=== PATIENT | female | born 1950 | race Caucasian/White ===

== ENCOUNTER → 2016-04-11 | Day surgery (SDC) | payer MEDICARE ==
[~2016-04-11] MED LIST: ALPRAZolam 0.25 MG TAB ONE; BACITRACIN OINT 1 EACH PACKET TOPICAL ONE; LIDOCAINE 1% INJ 10MG/ML (20 ML MDV) ONE; SODIUM BICARB 4% 5 ML VIAL (0.48 MEQ/ML) ONE
--- NOTE | 2016-04-11 09:35 | USB ---
EXAMINATION TYPE: US biopsy breast VAD RT, MG diagnostic mammo RT wo CAD, US breast aspiration single RT DATE OF EXAM: 04/11/2016 8:33 AM CLINICAL HISTORY: US. TECHNIQUE: Ultrasound guided core biopsy and aspiration of right breast. COMPARISON: NONE FINDINGS: The procedure of ultrasound guided core biopsy was explained to the patient. Benefits, alternatives, and risks were discussed. An informed consent was then obtained. The patient was placed in supine positioning for imaging and for the procedure. The overlying skin was prepped and draped in usual sterile fashion. Lidocaine buffered with bicarbonate was used as anesthetic into the skin and subcutaneous tissue up to area of concern in the right breast. A tre was made with surgical scalpel. Under ultrasound guidance, a 12-gauge vacuum assisted biopsy gun device was used to obtain 3 core samples. Aspiration was also performed and approximately 25 cc of bloody aspirate was obtained. Following this, a biopsy clip was left in lesion. Mammographic correlation was performed. The patient tolerated the procedure well without any immediate complication. The patient was kept in the radiology department for short stay after the procedure and then discharged home in stable condition. IMPRESSION: Successful, uncomplicated ultrasound guided core biopsy and aspiration of area of concern in the right breast, full pathology results to follow. Pathology Results: Benign BREAST, RIGHT, CORE BIOPSY: DENSE FIBROSIS/SCAR WITH CALCIFICATIONS. NEGATIVE FOR MALIGNANCY. BREAST, RIGHT, ASPIRATE: VIRTUALLY ACELLULAR SPECIMEN CONSISTING OF BLOOD WITH SCATTERED INFLAMMATORY CELLS. NON-DIAGNOSTIC. Recommendation Follow up ultrasound of the right breast in 6 months. FAVIOD
== END ==
LOC: RADUSWWP 06:59
PROVIDERS: ATTEND Surgery
DX: R92.8 Other abnormal and inconclusive findings on diagnostic imaging of breast (principal); N60.31 Fibrosclerosis of right breast; L90.5 Scar conditions and fibrosis of skin; N64.89 Other specified disorders of breast
CPT/HCPCS: 88305; 88173; 19083; G0206; A4648; J2001; 76942

== ENCOUNTER → 2016-11-21 | Outpatient (CLI) | payer MEDICARE ==
--- NOTE | 2016-11-21 08:07 | USB ---
Reason for exam: follow-up at short interval from prior study. History: Patient has history of breast cancer at age 40. Benign US breast aspiration single RT of the right breast, April 11, 2016. Benign US biopsy breast VAD RT of the right breast, April 11, 2016. Lumpectomy of the right breast, 1990. Radiation therapy of the right breast, 1990. Physical Findings: Nurse did not find any significant physical abnormalities on exam. US Breast RT Right breast ultrasound includes all four quadrants, the retroareolar region and axilla. Finding demonstrates a 1.3 x 1.6 x 1.0cm scar at 1 o'clock. Area is consistent with post surgical scar leading toward the skin and recently biopsied. These results were verbally communicated with the patient and result sheet given to the patient on 11/21/16. ASSESSMENT: Benign, BI-RAD 2 RECOMMENDATION: Routine screening mammogram of both breasts in 1 year.
== END | disposition home or self-care (01) ==
LOC: RADUSWWP 06:57
PROVIDERS: ATTEND Surgery
DX: R92.8 Other abnormal and inconclusive findings on diagnostic imaging of breast (principal)

== ENCOUNTER → 2017-04-01 | Outpatient (CLI) | payer MEDICARE ==
--- NOTE | 2017-04-01 09:24 | BD ---
EXAMINATION TYPE: MG DEXA axial skeleton. DATE OF EXAM: 04/01/2017 COMPARISON: NONE CLINICAL HISTORY: Height: 63.7 IN Weight: 156 LBS FRAX RISK QUESTIONS: Alcohol (3 or more units per day): NO Family History (Parent hip fracture): YES MOTHER Glucocorticoids (More than 3mos): NO (Ex: prednisone, prednisolone, methylprednisolone, dexamethasone, and hydrocortisone). History of Fracture in Adulthood: NO Secondary Osteoporosis: 1. Type 1 Diabetes: NO 2. Hyperthyroidism: NO 3. Menopause before 45: YES AGE 41 4. Malnutrition: NO 5. Chronic liver disease: NO Rheumatoid Arthritis: NO Current Tobacco Use: NO RISK FACTORS HISTORY OF: Active: YES Diet low in dairy products/other sources of calcium: YES Postmenopausal woman: AGE 41 Take estrogen and/or progesterone medications: NOT NOW How long: TOOK FOR 6 MONTHS PREMARIN Lost more than 2 inches in height since high school: YES 2 03/31" MEDICATIONS: Thyroid Medications: YES Which medication: Levothyroxine How Lon YEARS Additional Medications: VIT D, LEVOTHYROXINE, BLOOD PRESSURE MEDS, METFORMIN, WATER PILL, Additional History: BREAST CANCER WITH RADIATION EXAM MEASUREMENTS: Bone mineral densitometry was performed using the [employer] System. Bone mineral density as measured about the Lumbar spine is: ----- L1-L4(G/cm2): 1.111 T Score Values are as follows: ----- L2: -1.1 ----- L3: -0.4 ----- L4: 1.1 ----- L1-L4: -0.6 Bone mineral density BASELINE Bone mineral density about the R hip (g/cm2): 0.803 Bone mineral density about the L hip (g/cm2): 0.860 T Score values are as follows: -----R Neck: -1.7 -----L Neck: -1.3 -----R Total: -1.2 -----L Total: -1.0 Bone mineral density BASELINE IMPRESSION: Osteopenia (T Score between -2.5 and -1 as noted by T score values in both hips. There is slightly increased risk of fracture and the patient may be considered for treatment. Re-Screen 2-5 years. NOTE: T-SCORE=SD OF THE YOUNG ADULT MEAN.
== END | disposition home or self-care (01) ==
LOC: RADBDWWP 08:25
PROVIDERS: ATTEND Family Medicine
DX: Z78.0 Asymptomatic menopausal state (principal)
CPT/HCPCS: 77080

== ENCOUNTER → 2018-03-29 | Outpatient (CLI) | payer MEDICARE ==
--- NOTE | 2018-03-31 11:58 | MM ---
Reason for exam: screening (asymptomatic). Last mammogram was performed 1 year ago. History: Patient is postmenopausal and has history of breast cancer at age 40. Benign US breast aspiration single RT of the right breast, April 11, 2016. Benign US biopsy breast VAD RT of the right breast, April 11, 2016. Lumpectomy of the right breast, 1990. Radiation therapy of the right breast, 1990. Physical Findings: A clinical breast exam by your physician is recommended on an annual basis and results should be correlated with mammographic findings. MG 3D Screening Mammo W/Cad Bilateral CC and MLO view(s) were taken. Prior study comparison: March 24, 2017, bilateral MG 3d screening mammo w/cad. April 11, 2016, right breast MG diagnostic mammo RT wo CAD. There are scattered fibroglandular densities. There are benign appearing oval circumscribed stable anterior depth left lower inner quadrant mass back to 2015. No suspicious abnormality. Right post therapy change. No significant changes when compared with prior studies. ASSESSMENT: Benign, BI-RAD 2 RECOMMENDATION: Routine screening mammogram of both breasts in 1 year.
== END | disposition home or self-care (01) ==
LOC: RADMAMWWP 07:11
PROVIDERS: ATTEND Family Medicine
DX: Z12.31 Encounter for screening mammogram for malignant neoplasm of breast (principal)
CPT/HCPCS: 77063; 77067

== ENCOUNTER → 2019-04-18 | Outpatient (CLI) | payer MEDICARE ==
--- NOTE | 2019-04-18 10:46 | BD ---
EXAMINATION TYPE: Axial Bone Density DATE OF EXAM: 04/18/2019 COMPARISON: NONE CLINICAL HISTORY: Height: 65 Weight: 155.3 FRAX RISK QUESTIONS: Alcohol (3 or more units per day): no Family History (Parent hip fracture): yes Glucocorticoids (More than 3mos): no (Ex: prednisone, prednisolone, methylprednisolone, dexamethasone, and hydrocortisone). History of Fracture in Adulthood: no Secondary Osteoporosis: 1. Type 1 Diabetes: no 2. Hyperthyroidism: no 3. Menopause before 45: yes 4. Malnutrition: no 5. Chronic liver disease: no Rheumatoid Arthritis: no Current Tobacco Use: no RISK FACTORS HISTORY OF: Family History of Osteoporosis: no Active: yes Diet low in dairy products/other sources of calcium: yes Postmenopausal woman: yes Lost more than 2 inches in height since high school: yes MEDICATIONS: blood pressure, lantis, water pill, metformin Thyroid Medications: levothyroxine How Lon years Additional History: EXAM MEASUREMENTS: Bone mineral densitometry was performed using the [employer] System. Bone mineral density as measured about the Lumbar spine is: ----- L1-L4(G/cm2): 1.101 T Score Values are as follows: ----- L2: -1.7 ----- L3: -0.7 ----- L4: 0.9 ----- L1-L4: -0.7 Bone mineral density has: decreased -3.9 % since study of: 04.01.2017 Bone mineral density about the R hip (g/cm2): 0.788 Bone mineral density about the L hip (g/cm2): 0.858 T Score values are as follows: -----R Neck: -1.8 -----L Neck: -1.3 -----R Total: -1.3 -----L Total: -0.9 Bone mineral density has: decreased -0.2 % since study of: 04.01.2017 IMPRESSION: Osteopenia about the right femur. NOTE: T-SCORE=SD OF THE YOUNG ADULT MEAN.
--- NOTE | 2019-04-19 08:52 | MM ---
Reason for exam: screening (asymptomatic). Last mammogram was performed 1 year and 1 month ago. History: Patient is postmenopausal and has history of breast cancer at age 40. Benign US breast aspiration single RT of the right breast, April 11, 2016. Benign US biopsy breast VAD RT of the right breast, April 11, 2016. Lumpectomy of the right breast, 1990. Radiation therapy of the right breast, 1990. Physical Findings: A clinical breast exam by your physician is recommended on an annual basis and results should be correlated with mammographic findings. MG 3D Screening Mammo W/Cad Bilateral CC and MLO view(s) were taken. XCCM view(s) were taken of the right breast. Prior study comparison: March 29, 2018, bilateral MG 3d screening mammo w/cad. March 24, 2017, bilateral MG 3d screening mammo w/cad. There are scattered fibroglandular densities. Finding: There is decreased in size and architectural distortion in the right breast consistent with known lumpectomy changes. There is a chronic nodularity in the left breast anterior position. There is no new dominant lesion. ASSESSMENT: Benign, BI-RAD 2 RECOMMENDATION: Routine screening mammogram of both breasts in 1 year.
== END | disposition home or self-care (01) ==
LOC: RADMAMWWP 07:32
PROVIDERS: ATTEND Family Medicine
DX: Z12.31 Encounter for screening mammogram for malignant neoplasm of breast (principal); M85.88 Other specified disorders of bone density and structure, other site; Z78.0 Asymptomatic menopausal state
CPT/HCPCS: 77063; 77067; 77080

== ENCOUNTER → 2020-05-09 | Outpatient (CLI) | payer MEDICARE ==
--- NOTE | 2020-05-11 11:06 | MM ---
Reason for exam: screening (asymptomatic). Last mammogram was performed 1 year and 1 month ago. History: Patient is postmenopausal and has history of breast cancer at age 40. Benign US breast aspiration single RT of the right breast, April 11, 2016. Benign US biopsy breast VAD RT of the right breast, April 11, 2016. Lumpectomy of the right breast, 1990. Radiation therapy of the right breast, 1990. Physical Findings: A clinical breast exam by your physician is recommended on an annual basis and results should be correlated with mammographic findings. MG 3D Screening Mammo W/Cad Bilateral CC and MLO view(s) were taken. XCCL view(s) were taken of the right breast. Prior study comparison: April 18, 2019, bilateral MG 3d screening mammo w/cad. March 29, 2018, bilateral MG 3d screening mammo w/cad. There are scattered fibroglandular densities. Stable post operative changes right breast. No significant changes when compared with prior studies. ASSESSMENT: Benign, BI-RAD 2 RECOMMENDATION: Routine screening mammogram of both breasts in 1 year.
== END | disposition home or self-care (01) ==
LOC: RADMAMWWP 07:22
PROVIDERS: ATTEND Family Medicine
DX: Z12.31 Encounter for screening mammogram for malignant neoplasm of breast (principal)
CPT/HCPCS: 77063; 77067

== ENCOUNTER 2021-01-07 17:01 | Emergency (ER) | payer MEDICARE ==
--- NOTE | 2021-01-07 18:48 | XR ---
EXAMINATION TYPE: XR chest 2V DATE OF EXAM: 01/07/2021 COMPARISON: NONE TECHNIQUE: PA and lateral views submitted. HISTORY: Cough, chills and bodyaches FINDINGS: The lungs are clear and there is no pneumothorax, pleural effusion, or focal pneumonia. Tiny granul yeimy right lower lobe. Heart size normal. No overt failure. Hypertrophic and degenerative change of th e spine. Calcification the right upper quadrant could be related to a splenic granuloma or gallstone. Hyperinflation suggests COPD. IMPRESSION: 1. No acute process. 2. Possible splenic granuloma versus gallstone.
[2021-01-07 21:00] LABS: Glucose,Whole Blood 125 mg/dL (75-99)
[2021-01-07] MEDS ORDERED: ACETAMINOPHEN TAB 500 MG TAB PO STA (21:31)
[2021-01-07] MEDS ORDERED: SODIUM CHLORIDE 0.9% 1,000 ML IV STA (21:31)
[2021-01-07] MEDS ORDERED: IBUPROFEN 400 MG TAB PO STA (21:31)
[2021-01-07] MEDS ORDERED: ONDANSETRON 4 MG/2 ML VIAL IVP STA (21:31)
[2021-01-07] MEDS ORDERED: CASIRIVIMAB (REGN10933) (EUA) 600 MG, IMDEVIMAB (REGN10987) (EUA) 600 MG in SODIUM CHLO... IVPB ONE (22:00)
[2021-01-07] MEDS ORDERED: SODIUM CHLORIDE 0.9% 50 ML IVPB ONE (22:00)
[2021-01-07 22:23] LABS: ALT 32 U/L (4-34); AST 42 U/L (14-36); African American GFR (CKD) >90 (>60 ml/min/1.73 sqM); Albumin 4.2 g/dL (3.5-5.0); Alkaline Phosphatase 73 U/L (38-126); Anion Gap 14 mmol/L; Blood Urea Nitrogen 14 mg/dL (7-17); Calcium 9.6 mg/dL (8.4-10.2); Carbon Dioxide 21 mmol/L (22-30); Chloride 100 mmol/L (98-107); Glucose 129 mg/dL (74-99); Non-African American GFR(CKD) 88 (>60 ml/min/1.73 sqM); Potassium 3.7 mmol/L (3.5-5.1); Sodium 135 mmol/L (137-145); Total Bilirubin 0.8 mg/dL (0.2-1.3); Total Protein 7.4 g/dL (6.3-8.2)
[2021-01-07 23:23] LABS: Basophils # (A) 0.1 k/uL (0-0.2); Basophils % (A) 1 %; Eosinophils # (A) 0.1 k/uL (0-0.7); Eosinophils % (A) 1 %; HCT 40.6 % (34.0-46.0); HGB 13.5 gm/dL (11.4-16.0); Lymphocytes # (A) 2.4 k/uL (1.0-4.8); Lymphocytes % (A) 22 %; MCH 31.4 pg (25.0-35.0); MCHC 33.1 g/dL (31.0-37.0); Monocytes # (A) 0.8 k/uL (0-1.0); Monocytes % (A) 8 %; Neutrophils % (A) 65 %; RBC 4.28 m/uL (3.80-5.40); RDW 12.5 % (11.5-15.5); WBC 10.8 k/uL (3.8-10.6)
[2021-01-07] MEDS ORDERED: MORPHINE SULFATE 2 MG/ML SYRINGE IVP ONE (23:25)
--- NOTE | 2021-01-07 23:29 | ED ---
URI HPI - General Chief Complaint: Upper Respiratory Infection Stated Complaint: cough, nausea Time Seen by Provider: 01/07/21 21:19 Source: patient, RN notes reviewed Mode of arrival: ambulatory Limitations: no limitations - History of Present Illness Initial Comments: Patient is a 70-year-old female with history of thyroid disorder, presenting to the emergency Department with complaints of chills, aches, cough over the past 2 days. She has concerns for Covid. She denies any chest pains, no shortness of breath. She is also been having a headache over the past couple days as well. Today her appetite has been low, she's not been able to tolerate any liquids. She denies any abdominal pain, some mild nausea right now but no vomiting, no diarrhea. She has no further complaints. Upon arrival to the ER, her temperature is 100.9, pulse is 112, 94% on room air. - Related Data Previous Rx's Medication Instructions Recorded Dexamethasone [Decadron] 6 mg PO DAILY 6 Days #6 tablet 01/07/21 Allergies Allergy/AdvReac Type Severity Reaction Status Date / Time No Known Allergies Allergy Verified 01/07/21 18:26 Review of Systems ROS Statement: Those systems with pertinent positive or pertinent negative responses have been documented in the HPI. ROS Other: All systems not noted in ROS Statement are negative. Past Medical History Past Medical History: Thyroid Disorder Additional Past Medical History / Comment(s): Breast CA History of Any Multi-Drug Resistant Organisms: None Reported Past Surgical History: Hysterectomy Additional Past Surgical History / Comment(s): 1/2 thyroid removal Past Psychological History: No Psychological Hx Reported Smoking Status: Never smoker Past Alcohol Use History: None Reported Past Drug Use History: None Reported General Exam - General Exam Comments Initial Comments: GENERAL: Patient is well-developed and well-nourished. Patient is nontoxic and in no acute distress. HEAD: Atraumatic, normocephalic. EYES: Pupils equal round and reactive to light, extraocular movements intact, sclera anicteric, conjunctiva are normal. Eyelids were unremarkable. ENT: Nares patent, oropharynx clear without exudates. Moist mucous membranes. NECK: Normal range of motion, supple without lymphadenopathy or JVD. LUNGS: Unlabored respirations. Breath sounds clear to auscultation bilaterally and equal. No wheezes rales or rhonchi. HEART: Tachycardic rate and rhythm without murmurs, rubs or gallops. ABDOMEN: Soft, nontender, normoactive bowel sounds. No guarding, no rebound. No masses appreciated. : Deferred MUSCULOSKELETAL: Normal extremities with adequate strength and normal range of motion, no pitting or edema. No clubbing or cyanosis. NEUROLOGICAL: Patient is alert and oriented x 3. Motor and sensory are also intact. Cranial nerves II through XII grossly intact. Symmetrical smile. Normal speech, normal gait. PSYCH: Normal mood, normal affect. SKIN: Warm, Dry, normal turgor, no rashes or lesions noted. Limitations: no limitations Course Vital Signs 01/07/21 01/08/21 18:22 00:00 Temperature 100.9 F H 97.8 F Pulse Rate 112 H 95 Respiratory 20 18 Rate Blood Pressure 133/83 121/95 O2 Sat by Pulse 94 L 95 Oximetry Medical Decision Making - Medical Decision Making Patient is a 70-year-old female here with viral type symptoms such as cough, chills, body aches and headache over the past couple days. Her Covid test is positive today. Patient arrives afebrile and tachycardia as well. She did agree to monoclonal antibodies which she did receive. I'll secure some fluids, pain medicine for her headache as well as Zofran. She's been resting comfortably. Her vital signs remained stable. She is stable for discharge. I give her a course of steroids. She can follow up with her primary care. Return parameters were discussed with her and she verbalized understanding. Case discussed with Dr. vasquez. - Lab Data Result diagrams: 01/07/21 Unknown 01/07/21 21:44 Lab Results 01/07/21 01/07/21 01/07/21 Range/Units 18:28 20:48 21:44 WBC (3.8-10.6) k/uL RBC (3.80-5.40) m/uL Hgb (11.4-16.0) gm/dL Hct (34.0-46.0) % MCV (80.0-100.0) fL MCH (25.0-35.0) pg MCHC (31.0-37.0) g/dL RDW (11.5-15.5) % Plt Count (150-450) k/uL MPV Neutrophils % % Lymphocytes % % Monocytes % % Eosinophils % % Basophils % % Neutrophils # (1.3-7.7) k/uL Lymphocytes # (1.0-4.8) k/uL Monocytes # (0-1.0) k/uL Eosinophils # (0-0.7) k/uL Basophils # (0-0.2) k/uL Sodium 135 L (137-145) mmol/L Potassium 3.7 (3.5-5.1) mmol/L Chloride 100 (98-107) mmol/L Carbon Dioxide 21 L (22-30) mmol/L Anion Gap 14 mmol/L BUN 14 (7-17) mg/dL Creatinine 0.67 (0.52-1.04) mg/dL Est GFR (CKD-EPI)AfAm >90 (>60 ml/min/1.73 sqM) Est GFR (CKD-EPI)NonAf 88 (>60 ml/min/1.73 sqM) Glucose 129 H (74-99) mg/dL POC Glucose (mg/dL) 125 H (75-99) mg/dL POC Glu [employer] Director ID Erik Urbina Calcium 9.6 (8.4-10.2) mg/dL Total Bilirubin 0.8 (0.2-1.3) mg/dL AST 42 H (14-36) U/L ALT 32 (4-34) U/L Alkaline Phosphatase 73 (38-126) U/L Total Protein 7.4 (6.3-8.2) g/dL Albumin 4.2 (3.5-5.0) g/dL Coronavirus (PCR) Detected A (Not Detectd) 01/07/21 Range/Units Unknown WBC 10.8 H (3.8-10.6) k/uL RBC 4.28 (3.80-5.40) m/uL Hgb 13.5 (11.4-16.0) gm/dL Hct 40.6 (34.0-46.0) % MCV 95.0 (80.0-100.0) fL MCH 31.4 (25.0-35.0) pg MCHC 33.1 (31.0-37.0) g/dL RDW 12.5 (11.5-15.5) % Plt Count (150-450) k/uL MPV 13.0 Neutrophils % 65 % Lymphocytes % 22 % Monocytes % 8 % Eosinophils % 1 % Basophils % 1 % Neutrophils # 7.0 (1.3-7.7) k/uL Lymphocytes # 2.4 (1.0-4.8) k/uL Monocytes # 0.8 (0-1.0) k/uL Eosinophils # 0.1 (0-0.7) k/uL Basophils # 0.1 (0-0.2) k/uL Sodium (137-145) mmol/L Potassium (3.5-5.1) mmol/L Chloride (98-107) mmol/L Carbon Dioxide (22-30) mmol/L Anion Gap mmol/L BUN (7-17) mg/dL Creatinine (0.52-1.04) mg/dL Est GFR (CKD-EPI)AfAm (>60 ml/min/1.73 sqM) Est GFR (CKD-EPI)NonAf (>60 ml/min/1.73 sqM) Glucose (74-99) mg/dL POC Glucose (mg/dL) (75-99) mg/dL POC Glu [employer] Director ID Calcium (8.4-10.2) mg/dL Total Bilirubin (0.2-1.3) mg/dL AST (14-36) U/L ALT (4-34) U/L Alkaline Phosphatase (38-126) U/L Total Protein (6.3-8.2) g/dL Albumin (3.5-5.0) g/dL Coronavirus (PCR) (Not Detectd) Disposition Clinical Impression: COVID-19 Disposition: HOME SELF-CARE Condition: Stable Instructions (If sedation given, give patient instructions): Coronavirus Disease 2019 (COVID-19) Additional Instructions: Please return to the Emergency Department if symptoms worsen or any other concerns. Recommend alternating between Tylenol and ibuprofen for fever relief or body aches and headache. Take steroids as prescribed for cough. Steroids may make your sugar elevated, monitor sugar. Follow-up with primary care doctor. Prescriptions: Dexamethasone [Decadron] 6 mg PO DAILY 6 Days #6 tablet Is patient prescribed a controlled substance at d/c from ED?: No Referrals: Kevin Nails MD [Primary Care Provider] - 1-2 days Time of Disposition: 23:31
[2021-01-08 00:11] VITALS: BP 121/95; PULSE 95; RESP 18; TEMP 97.8
== END 2021-01-08 00:05 | disposition home or self-care (01) ==
LOC: EC 17:01
DX: U07.1 COVID-19 (principal)
CPT/HCPCS: 99284 ×2; 96375 ×2; 36415; 80053; 85025; 87635; 71046; M0243; J2405; J2270; Q0243

== ENCOUNTER → 2021-04-30 | Outpatient (CLI) | payer MEDICARE ==
--- NOTE | 2021-04-30 08:29 | MR ---
EXAMINATION TYPE: MR lumbar spine wo con DATE OF EXAM: 04/30/2021 COMPARISON: NONE HISTORY: Low back pain into left buttocks and calf TECHNIQUE: Multiplanar, multisequence imaging of the lumbar spine is performed without IV contrast. FINDINGS: Levoconvex scoliosis centered at L2-L3 level is present. Slight exaggerated lumbar lordosis on sagittal images. Sagittal images of the lumbar spine show vertebral body heights to appear satisf actory. Multilevel disc desiccation. Moderate to severe anterior spurring upper to mid lumbar spine. [id number] disc space narrowing left L5-S1 level. The conus medullaris is normal in position and signal ending at L1 level. The bone marrow signal intensity is within normal limits. Tiny poste rior disc herniations efface the anterior thecal sac in the lower thoracic spine. Axial images at T12-L1 level shows mild to moderate broad disc bulge with left lateral disc protrusio n effacing the anterior thecal sac. Axial images at L1-L2 level show mild facet degenerative changes bilaterally with some effacement of the right posterolateral thecal sac. Patent bilateral neural foramina. Axial images at L2-L3 level show mild broad disc bulge minimally effacing the anterior thecal sac. Mi ld facet degenerative changes bilaterally. Asymmetric mild right-sided neural foraminal narrowing. Axial images at L3-L4 level show moderate right greater than left facet arthropathy and ligamentum fl avum hypertrophy with some bilateral posterior lateral thecal sac effacement. Mild broad-based manager digital ior spur disc complex mildly effaces the anterior thecal sac. There is [id number] bilateral tremaine ral foraminal narrowing. Axial images at L4-L5 level show moderate left greater than right facet arthropathy effacing left pos terior lateral thecal sac. There is moderate broad-based left paracentral/foraminal disc protrusion e ffacing the anterolateral thecal sac. There is mild bilateral neural foraminal narrowing. Axial images at L5-S1 level shows central disc protrusion. There is mild to moderate left greater belinda n right facet arthropathy. There is moderate to severe left-sided neural foraminal narrowing with enc roachment on the left L5 nerve pocket present sagittal image 10 as there is sacralized left L5 segmen t. Right-sided neural foramen is patent. A few scattered thin-walled cysts throughout both kidneys including exophytic lower pole 5.5 cm cyst from the left kidney are noted. IMPRESSION: Scoliosis with multilevel degenerative changes most prominent at the lumbosacral junction as detailed above.
== END | disposition home or self-care (01) ==
LOC: RADMRIMAIN 07:34
PROVIDERS: ATTEND Specialist
DX: M51.37 Other intervertebral disc degeneration, lumbosacral region (principal); M41.9 Scoliosis, unspecified
CPT/HCPCS: 72148

== ENCOUNTER → 2021-06-26 | Outpatient (CLI) | payer MEDICARE ==
[2021-06-26 09:36] VITALS: BP 133/90; PULSE 79; RESP 18; TEMP 97.7
--- NOTE | 2021-06-26 09:42 | P.PN ---
Subjective Progress Note Date: 06/26/21 Principal diagnosis: A 70 yr old female at side with a history of severe and chronic low back pain secondary to lumbar degenerative disc diseases and lumbar spondylosis with facet arthropathy presents today for review of MRI of the lumbar spine. Pain level is 3 out of 10 intensity, tight, achy pain in the lower aspect of her lumbar spine but waxes and wanes throughout the day and can escalate as high as 7 out of 10 in intensity with bending, lifting and twisting. Admits to left lower extremity shooting pain. Pain is alleviated with Tylenol, Kelso Poss patches, injections, heat, physical therapy in December 2020 but was just continued due to Kovic 2, use of a hot tub and rest. Interventional pain procedures completed include LESI L5-S1 Patient is currently on Tylenol Patient denies any side effects of the medication(s), denies excessive drowsiness or sleepiness, denies suicidal ideation and reports that the current pain medication is helping to control the pain and improve activities of daily living. Patient denies any motor or sensory deficits. Patient denies any fever or night sweats, denies any change in the bowel movements or urination. Physical Examination: -Constitutional: Cooperative. Not in acute distress . -HEENT: Neck is supple. No lymphadenopathy. No thyromegaly. Normal thyroid size. Eyes: No ptosis , no icterus, no photophobia. ENT: No auditory deficits. Normal oropharynx. No Thrush. - Respiratory: Chest clear to auscultations bilaterally. No wheezing. No rhonchi. - Cardiovascular: Regular rate and rhythm. S1 / S2 , no S3 , no S4. - Gastrointestinal: Abdomen soft no tenderness. Bowel sounds positive in all four quadrants. No organomegaly. - Genitourinary: Deferred. - Neurologic: Cranial nerve II to XII intact. No focal neurological deficits. - Psychatric: Alert & oriented x 3. Matching mood & appropriate affect. Judgment and insight intact. - Lymphatic: No Lymphadenopathy. - Musculoskeletal: Cervical spine: Muscle bulk/ tone/ strength in the bilateral upper extremities normal. Facet loading test cervical area positive. Lumbar spine: Motor bulk/ tone/ strength lower extremities , thigh and legs : 5/5 Deep tendon reflexes : Normal Knee Jerk. Normal Ankle Jerk . Vertebral body tenderness to palpation over L5 Lumbar Facet Loading Test positive on the left Straight Leg Raise: positive at 30 degrees right side/ left side Gaenslen's Test positive Sacral spine : Severe tenderness over the Sacroiliac joint: right side / left side Range of motion: Flexion of the lumbar spine <60 degrees Range of motion: Extension of the lumbar spine <20 degrees Gaenslen's Test positive Tolu test: positive right side / left side Assessment and plan: Chronic low back pain secondary to lumbar degenerative disc disease , lumbar spondylosis with facet arthropathy without myelopathy PT ordered for lumbar spine 3 x/wk x 6 weeks. Pt feels her lower back pain is not intense enough to undergo any interventional or prescription management at this time. She will try PT to see if she can alleviate pain due to disc bulges. All patient questions answered MAPS reviewed and it was appropriate. I have spent 31 minutes on patient care today. Dr Dobson was available by phone for the evaluation of this patient. The time was used to review the medical records including relevant urine studies and Prescription history (MAPs), review of the available imaging, evaluation and examination of the patient, coordination of care with the medical staff and if applicable referring physicians, as well as creation of the medical record Objective - Vital Signs Vital signs: Vital Signs Temp 97.7 F 06/26/21 09:29 Pulse 79 06/26/21 09:29 Resp 18 06/26/21 09:29 BP 133/90 06/26/21 09:29 Pulse Ox 95 06/26/21 09:29 Intake & Output 06/25/21 06/26/21 06/26/21 18:59 06:59 18:59 Weight 67.132 kg PQRS Measure Charge Sheet Mode of Arrival: Ambulatory - Pain Location Lower Back Non-Pharmacological Interventions: Heat, Stretching Pharmacological Interventions: PRN Medication, Topical Medication PQRS Narrative: Blood Pressure 133/90 Pain Intensity [Lower Back] 3 Scale Used Numeric (1 - 10) Hx Alcohol Use (MH) No Home Medications: Ambulatory Orders Allopurinol [Zyloprim] 300 mg PO DAILY 04/09/21 Benazepril HCl 20 mg PO DAILY 04/09/21 Insulin Glargine,Hum.rec.anlog [Lantus Solostar Pen] 15 unit SQ HS 04/09/21 Levothyroxine Sodium 25 mcg PO DAILY 04/09/21 Simvastatin 40 mg PO DAILY 04/09/21 hydroCHLOROthiazide 25 mg PO DAILY 04/09/21 metFORMIN HCL [Glucophage] 500 mg PO BID 04/09/21
== END | disposition home or self-care (01) ==
LOC: PNWHC3 08:19
PROVIDERS: ATTEND Specialist
DX: M47.896 Other spondylosis, lumbar region (principal); M51.36 Other intervertebral disc degeneration, lumbar region
CPT/HCPCS: 99211

== ENCOUNTER → 2021-07-08 | Outpatient (CLI) | payer MEDICARE ==
--- NOTE | 2021-07-09 11:52 | MM ---
Reason for exam: screening (asymptomatic). Last mammogram was performed 1 year and 2 months ago. History: Patient is postmenopausal and has history of breast cancer at age 40. Benign US breast aspiration single RT of the right breast, April 11, 2016. Benign US biopsy breast VAD RT of the right breast, April 11, 2016. Lumpectomy of the right breast, 1990. Radiation therapy of the right breast, 1990. Took other hormone beginning at age 40. Physical Findings: A clinical breast exam by your physician is recommended on an annual basis and results should be correlated with mammographic findings. MG 3D Screening Mammo W/Cad Bilateral CC and MLO view(s) were taken. Prior study comparison: May 09, 2020, bilateral MG 3d screening mammo w/cad. April 18, 2019, bilateral MG 3d screening mammo w/cad. There are scattered fibroglandular densities. Diminutive post operative right breast. No significant changes when compared with prior studies. ASSESSMENT: Benign, BI-RAD 2 RECOMMENDATION: Routine screening mammogram of both breasts in 1 year.
== END | disposition home or self-care (01) ==
LOC: RADMAMWWP 07:55
PROVIDERS: ATTEND Family Medicine
DX: Z12.31 Encounter for screening mammogram for malignant neoplasm of breast (principal)
CPT/HCPCS: 77063; 77067

== ENCOUNTER → 2022-07-14 | Outpatient (CLI) | payer MEDICARE ==
--- NOTE | 2022-07-15 08:20 | MM ---
Reason for Exam: Screening (asymptomatic). Last screening mammogram was performed 12 month(s) ago. Patient History: Menarche at age 13. First Full-Term at age 18. Left ovary removed at age 38. Right ovary removed at age 38. Hysterectomy at age 38. Postmenopausal. Breast cancer, age 40. 1990, Lumpectomy on the Right side. 04/11/2016, Benign Cyst Aspiration on the right side. 04/11/2016, Benign Core Biopsy on the right side. 1990, Radiation Therapy on the right side. Prior Study Comparison: 04/18/2019 Bilateral Screening Mammogram, [facility]. 05/09/2020 Bilateral Screening Mammogram, [facility]. 07/08/2021 Bilateral Screening Mammogram, [facility]. Tissue Density: There are scattered fibroglandular densities. Findings: Analyzed By CAD. Asymmetric diminished size of the right breast with dystrophic calcifications posteriorly and subtle distortion is redemonstrated. Stable oval circumscribed 6 mm mass in the posterior left breast. There is no suspicious group of microcalcifications or enlarging or new suspicious mass in either breast. Overall Assessment: Benign, BI-RAD 2 Management: Screening Mammogram of both breasts in 1 year. A clinical breast exam by your physician is recommended on an annual basis and results should be correlated with mammographic findings. Electronically signed and approved by: Gui Lorenzo M.D.
== END | disposition home or self-care (01) ==
LOC: RADMAMWWP 07:43
PROVIDERS: ATTEND Family Medicine
DX: Z12.31 Encounter for screening mammogram for malignant neoplasm of breast (principal); Z78.0 Asymptomatic menopausal state
CPT/HCPCS: 77063; 77067

== ENCOUNTER 2023-04-02 14:14 | Emergency (ER) | payer MEDICARE ==
--- NOTE | 2023-04-02 14:31 | ED ---
General Adult HPI - General Source: patient Mode of arrival: ambulatory Limitations: no limitations <Josie Hernandez - Last Filed: 04/02/23 14:30> - General Source: RN notes reviewed, old records reviewed <Boy Guzman - Last Filed: 04/02/23 17:31> - General Stated complaint: sob - History of Present Illness Initial comments: Patient is a 72 yr old female who presents emergency room sent in by pcp for SVT, shortness breath, hypotension. Symptoms started yesterday. Was 144 bpm (Josie Hernandez) 72-year-old female with upper respiratory symptoms for the past several days. Patient went to primary care for evaluation and was noted to be in a tachycardia dysrhythmia no prior history. She states she's had cough, congestion, fever. She's had fatigue over the past several days her had similar symptoms. No central chest pain. Mild dyspnea. (Boy Guzman) - Related Data Home Medications Medication Instructions Recorded Confirmed Benazepril HCl 20 mg PO DAILY 04/09/21 06/26/21 Insulin Glargine,Hum.rec.anlog 15 unit SQ HS 04/09/21 06/26/21 [Lantus Solostar Pen] Levothyroxine Sodium 25 mcg PO DAILY 04/09/21 06/26/21 Simvastatin 40 mg PO DAILY 04/09/21 06/26/21 allopurinoL [Zyloprim] 300 mg PO DAILY 04/09/21 06/26/21 hydroCHLOROthiazide 25 mg PO DAILY 04/09/21 06/26/21 metFORMIN HCL [Glucophage] 500 mg PO BID 04/09/21 06/26/21 Allergies Allergy/AdvReac Type Severity Reaction Status Date / Time No Known Allergies Allergy Verified 04/02/23 14:30 Review of Systems ROS Other: All systems not noted in ROS Statement are negative. <Josie Hernandez - Last Filed: 04/02/23 14:30> ROS Other: All systems not noted in ROS Statement are negative. <Boy Guzman - Last Filed: 04/02/23 17:31> ROS Statement: Those systems with pertinent positive or pertinent negative responses have been documented in the HPI. Past Medical History Past Medical History: Cancer, Diabetes Mellitus, Hyperlipidemia, Hypertension, Osteoarthritis (OA), Thyroid Disorder Additional Past Medical History / Comment(s): Hx Covid 04/23/21 with bodyaches and sore throat. Hx right breast cancer 26 yrs ago, had 6 weeks of radiation. History of Any Multi-Drug Resistant Organisms: None Reported Past Surgical History: Hysterectomy Additional Past Surgical History / Comment(s): 1/2 thyroid removed, varicose vein stripped. Past Anesthesia/Blood Transfusion Reactions: Postoperative Nausea & Vomiting (PONV) Past Psychological History: No Psychological Hx Reported Smoking Status: Former smoker Past Alcohol Use History: None Reported Past Drug Use History: None Reported - Past Family History Mother Family Medical History: No Reported History <Josie Hernandez - Last Filed: 04/02/23 14:30> General Exam Limitations: no limitations <Josie Hernandez - Last Filed: 04/02/23 14:30> General appearance: alert, in no apparent distress Head exam: Present: atraumatic, normocephalic Eye exam: Present: normal appearance, PERRL ENT exam: Present: normal exam Neck exam: Present: normal inspection. Absent: tenderness Respiratory exam: Present: normal lung sounds bilaterally. Absent: respiratory distress, wheezes Cardiovascular Exam: Present: normal rhythm, tachycardia GI/Abdominal exam: Present: soft. Absent: distended, tenderness, guarding Extremities exam: Present: normal inspection, normal capillary refill. Absent: pedal edema Neurological exam: Present: alert, oriented X3, CN II-XII intact. Absent: motor sensory deficit Psychiatric exam: Present: anxious Skin exam: Present: warm, dry, intact <Boy Guzman - Last Filed: 04/02/23 17:31> - General Exam Comments Initial Comments: Visual Physical Exam Vital signs reviewed General: Well-appearing, nontoxic, no acute distress. Head: Normocephalic, atraumatic Eyes: PERRLA, EOMI ENT: Airway patent Chest: Nonlabored breathing. Tachycardic Skin: No visual rash, normal skin tone Neuro: Alert and oriented 3 Musculoskeletal: No gross abnormalities (Josie Hernandez) Course <Boy Guzman - Last Filed: 04/02/23 17:31> Vital Signs 04/02/23 04/02/23 04/02/23 14:25 15:21 17:13 Temperature 97.8 F Pulse Rate 147 H 84 65 Respiratory 18 18 18 Rate Blood Pressure 93/73 98/67 88/56 O2 Sat by Pulse 97 96 98 Oximetry - Reevaluation(s) Reevaluation #1: 04/02/23 17:31 Pt declines antivirals. (Boy Guzman) Reevaluation #2: 04/02/23 17:[address] Nails has been paged (Boy Guzman) Medical Decision Making <Josie Hernandez - Last Filed: 04/02/23 14:30> - Lab Data Result diagrams: 04/02/23 14:38 04/02/23 14:38 <Boy Guzman - Last Filed: 04/02/23 17:31> - Medical Decision Making Quick note portion completed by myself, signed RANDY White. (Josie Hernandez) Was pt. sent in by a medical professional or institution (, PA, MAIL ROOM CLERK, urgent care, hospital, or [place] health care facility...) When possible be specific @ -No Did you speak to anyone other than the patient for history (EMS, parent, family, police, friend...)? What history was obtained from this source @ -No Did you review nursing and triage notes (agree or disagree)? Why? @ -I reviewed and agree with nursing and triage notes Were old charts reviewed (outside hosp., previous admission, EMS record, old EKG, old radiological studies, urgent care reports/EKG's, [place] health care facility records)? Report findings @ -No old charts were reviewed Differential Diagnosis (chest pain, altered mental status, abdominal pain women, abdominal pain men, vaginal bleeding, weakness, fever, dyspnea, syncope, headache, dizziness, GI bleed, back pain, seizure, CVA, palpatations, mental health, musculoskeletal)? @ -not applicable EKG interpreted by me (3pts min.). @ -No complex tachycardia at a rate of approximately 140 suspect atrial flutter with RVR, QRS duration 155, QTC 369. EKG sinus rhythm with PVC rate of 87, TX interval 155, QRS duration 93, QTC [address] segment elevation. X-rays interpreted by me (1pt min.). @Chest x-ray neg for focal pneumonia CT interpreted by me (1pt min.). @ -None done U/S interpreted by me (1pt. min.). @ -None done What testing was considered but not performed or refused? (CT, X-rays, U/S, labs)? Why? @ -None What meds were considered but not given or refused? Why? @ -None Did you discuss the management of the patient with other professionals (professionals i.e. Dr., PA, MAIL ROOM CLERK, lab, RT, psych nurse, social work program coordinator, fish peddler, teacher, senior major gifts officer, telehealth case manager)? Give summary @ -No Was smoking cessation discussed for >3mins.? @ -No Was critical care preformed (if so, how long)? @ -No Were there social determinants of health that impacted care today? How? ( Homelessness, low income, unemployed, alcoholism, drug addiction, transportation, low edu. Level, literacy, decrease access to med. care, custodial, rehab)? @ -No Was there de-escalation of care discussed even if they declined (Discuss DNR or withdrawal of care, Hospice)? DNR status @ -No What co-morbidities impacted this encounter? (DM, HTN, Smoking, COPD, CAD, Cancer, CVA, ARF, Chemo, Hep., AIDS, mental health diagnosis, sleep apnea, morbid obesity)? @ -hypertension Patient discharged, 72-year-old female presenting in atrial flutter with upper respiratory symptoms. Patient does test positive for coronavirus. She converts to sinus rhythm with minimal IV fluid. Laboratory testing is unremarkable. Did plan to admit this patient for telemetry, cardiology consultation. The patient does not want to stay in the hospital. She is instructed to follow closely with her primary care provider and cardiology regarding this episodic arrhythmia. She will return if symptoms recur. Undiagnosed new problem with uncertain prognosis? @ -No Drug Therapy requiring intensive monitoring for toxicity (Heparin, Nitro, Insulin, Cardizem)? @ -No Were any procedures done? @ -No Diagnosis/symptom? @Covid, atrial flutter Acute, or Chronic, or Acute on Chronic? @ acute Uncomplicated (without systemic symptoms) or Complicated (systemic symptoms)? @ -complicated Side effects of treatment? @ -No Exacerbation, Progression, or Severe Exacerbation? @ -No Poses a threat to life or bodily function? How? (Chest pain, USA, MS, pneumonia, PE, COPD, DKA, ARF, appy, cholecystitis, CVA, Diverticulitis, Homicidal, Suicidal, threat to staff... and all critical care pts) @ -[yes, arrhythmia (Boy Guzman) - Lab Data Lab Results 04/02/23 04/02/23 04/02/23 Range/Units 14:38 14:38 14:38 WBC 11.7 H (3.8-10.6) k/uL RBC 4.93 (3.80-5.40) m/uL Hgb 15.9 (11.4-16.0) gm/dL Hct 47.4 H (34.0-46.0) % MCV 96.1 (80.0-100.0) fL MCH 32.2 (25.0-35.0) pg MCHC 33.5 (31.0-37.0) g/dL RDW 12.9 (11.5-15.5) % Plt Count Not Reportable MPV 13.8 Neutrophils % (Manual) 53 % Lymphocytes % (Manual) 29 % Monocytes % (Manual) 14 % Eosinophils % (Manual) 4 % Other Cells % % Neutrophils # (Manual) 6.20 (1.3-7.7) k/uL Lymphocytes # (Manual) 3.39 (1.0-4.8) k/uL Monocytes # (Manual) 1.64 H (0-1.0) k/uL Eosinophils # (Manual) 0.47 (0-0.7) k/uL Nucleated RBCs 0 (0-0) /100 WBC Manual Slide Review Performed PT 10.0 (10.0-12.5) sec INR 0.9 (<1.2) APTT 26.9 (22.0-30.0) sec Sodium 136 L (137-145) mmol/L Potassium 4.2 (3.5-5.1) mmol/L Chloride 101 (98-107) mmol/L Carbon Dioxide 17 L (22-30) mmol/L Anion Gap 18 mmol/L BUN 30 H (7-17) mg/dL Creatinine 0.99 (0.52-1.04) mg/dL Est GFR (CKD-EPI)AfAm 65 (>60 ml/min/1.73 sqM) Est GFR (CKD-EPI)NonAf 57 (>60 ml/min/1.73 sqM) Glucose 245 H (74-99) mg/dL Calcium 9.4 (8.4-10.2) mg/dL Total Bilirubin 0.7 (0.2-1.3) mg/dL AST 52 H (14-36) U/L ALT 36 H (4-34) U/L Alkaline Phosphatase 70 (38-126) U/L Troponin I (0.000-0.034) ng/mL Total Protein 7.6 (6.3-8.2) g/dL Albumin 4.6 (3.5-5.0) g/dL TSH (0.465-4.680) mIU/L Influenza Type A (PCR) (Not Detectd) Influenza Type B (PCR) (Not Detectd) RSV (PCR) (Not Detectd) SARS-CoV-2 (PCR) (Not Detectd) 04/02/23 04/02/23 04/02/23 Range/Units 14:38 14:58 15:07 WBC (3.8-10.6) k/uL RBC (3.80-5.40) m/uL Hgb (11.4-16.0) gm/dL Hct (34.0-46.0) % MCV (80.0-100.0) fL MCH (25.0-35.0) pg MCHC (31.0-37.0) g/dL RDW (11.5-15.5) % Plt Count MPV Neutrophils % (Manual) % Lymphocytes % (Manual) % Monocytes % (Manual) % Eosinophils % (Manual) % Other Cells % % Neutrophils # (Manual) (1.3-7.7) k/uL Lymphocytes # (Manual) (1.0-4.8) k/uL Monocytes # (Manual) (0-1.0) k/uL Eosinophils # (Manual) (0-0.7) k/uL Nucleated RBCs (0-0) /100 WBC Manual Slide Review PT (10.0-12.5) sec INR (<1.2) APTT (22.0-30.0) sec Sodium (137-145) mmol/L Potassium (3.5-5.1) mmol/L Chloride (98-107) mmol/L Carbon Dioxide (22-30) mmol/L Anion Gap mmol/L BUN (7-17) mg/dL Creatinine (0.52-1.04) mg/dL Est GFR (CKD-EPI)AfAm (>60 ml/min/1.73 sqM) Est GFR (CKD-EPI)NonAf (>60 ml/min/1.73 sqM) Glucose (74-99) mg/dL Calcium (8.4-10.2) mg/dL Total Bilirubin (0.2-1.3) mg/dL AST (14-36) U/L ALT (4-34) U/L Alkaline Phosphatase (38-126) U/L Troponin I <0.012 (0.000-0.034) ng/mL Total Protein (6.3-8.2) g/dL Albumin (3.5-5.0) g/dL TSH 4.480 (0.465-4.680) mIU/L Influenza Type A (PCR) Not Detected (Not Detectd) Influenza Type B (PCR) Not Detected (Not Detectd) RSV (PCR) Not Detected (Not Detectd) SARS-CoV-2 (PCR) Detected A (Not Detectd) Disposition <Josie Hernandez - Last Filed: 04/02/23 14:30> Is patient prescribed a controlled substance at d/c from ED?: No Time of Disposition: 17:31 <Boy Guzman - Last Filed: 04/02/23 17:31> Clinical Impression: COVID-19, Atrial flutter Disposition: HOME SELF-CARE Condition: Fair Instructions (If sedation given, give patient instructions): COVID-19 (Coronavirus Disease 2019) (ED), Atrial Flutter (ED) Referrals: Kevin Nails MD [Primary Care Provider] - 1-2 days
[2023-04-02 14:36] VITALS: RESP 18
[2023-04-02] MEDS ORDERED: SODIUM CHLORIDE 0.9% 1,000 ML IV ONE (14:51)
[2023-04-02] MEDS ORDERED: ACETAMINOPHEN TAB 500 MG TAB PO STA (14:51)
[2023-04-02 14:57] LABS: HCT 47.4 % (34.0-46.0); HGB 15.9 gm/dL (11.4-16.0); MCH 32.2 pg (25.0-35.0); MCHC 33.5 g/dL (31.0-37.0); MCV 96.1 fL (80.0-100.0); Mean Platelet Volume 13.8; RBC 4.93 m/uL (3.80-5.40); RDW 12.9 % (11.5-15.5); WBC 11.7 k/uL (3.8-10.6)
[2023-04-02 15:03] LABS: INR 0.9 (<1.2); Partial Thromboplastin Time 26.9 sec (22.0-30.0)
[2023-04-02 15:07] LABS: ALT 36 U/L (4-34); AST 52 U/L (14-36); African American GFR (CKD) 65 (>60 ml/min/1.73 sqM); Albumin 4.6 g/dL (3.5-5.0); Alkaline Phosphatase 70 U/L (38-126); Anion Gap 18 mmol/L; Blood Urea Nitrogen 30 mg/dL (7-17); Calcium 9.4 mg/dL (8.4-10.2); Carbon Dioxide 17 mmol/L (22-30); Chloride 101 mmol/L (98-107); Glucose 245 mg/dL (74-99); Non-African American GFR(CKD) 57 (>60 ml/min/1.73 sqM); Sodium 136 mmol/L (137-145); Total Bilirubin 0.7 mg/dL (0.2-1.3); Total Protein 7.6 g/dL (6.3-8.2)
[2023-04-02 15:21] LABS: Potassium 4.2 mmol/L (3.5-5.1)
[2023-04-02 15:25] LABS: Eosinophils # (M) 0.47 k/uL (0-0.7); Lymphocytes # (M) 3.39 k/uL (1.0-4.8); Monocytes # (M) 1.64 k/uL (0-1.0); Neutrophils % (M) 53 %; Nucleated Red Blood Cells 0 /100 WBC (0-0); Total Cells Counted 100
--- NOTE | 2023-04-02 15:49 | XR ---
EXAMINATION TYPE: XR chest 1V portable DATE OF EXAM: 04/02/2023 COMPARISON: Prior chest x-ray January 07, 2021 HISTORY: SVT, dizziness TECHNIQUE: Single frontal view of the chest is obtained. FINDINGS: There is no focal air space opacity, pleural effusion, or pneumothorax seen. The cardiac silhouette size remains within normal limits. The osseous structures are demineralized. Scoliosis i n the lumbar spine is redemonstrated. Overlying EKG leads are noted on current study. IMPRESSION: No acute cardiopulmonary process.
[2023-04-02] MEDS ORDERED: SODIUM CHLORIDE 0.9% 500 ML 500 ML IV ONE (17:15)
[2023-04-02 18:59] VITALS: BP 106/72; PULSE 67; TEMP 98.8
== END 2023-04-02 18:50 | disposition home or self-care (01) ==
LOC: EC 14:14
DX: U07.1 COVID-19 (principal); I48.92 Unspecified atrial flutter; E11.9 Type 2 diabetes mellitus without complications; I10 Essential (primary) hypertension; E78.5 Hyperlipidemia, unspecified; M19.90 Unspecified osteoarthritis, unspecified site; E07.9 Disorder of thyroid, unspecified; Z79.4 Long term (current) use of insulin; Z79.84 Long term (current) use of oral hypoglycemic drugs; Z79.890 Hormone replacement therapy; Z79.899 Other long term (current) drug therapy; Z87.891 Personal history of nicotine dependence
CPT/HCPCS: 36415; 71045; 80053; 84443; 84484; 85025; 85610; 85730; 87636; 93005; 96360; 96361; 99285

== ENCOUNTER 2023-04-04 09:51 | Observation (INO) | payer MEDICARE ==
--- NOTE | 2023-04-04 10:36 | ED ---
General Adult HPI - General Chief complaint: Weakness Stated complaint: covid + sob Time Seen by Provider: 04/04/23 10:15 Source: patient, RN notes reviewed, old records reviewed Mode of arrival: ambulatory Limitations: no limitations - History of Present Illness Initial comments: This is a 72-year-old female who presents emergency Department with a complaint of weakness. Patient states she was diagnosed over 2 days ago. Patient states the weakness is gotten worse and she notices morning that she had a fast heart rate was feeling short of breath. Patient states she couldn't get a blood pressure home so she decided come to the emergency department. Patient states she lost her grandson a few weeks ago so she's also very very upset. Patient de nies any chest pain or heaviness. Patient denies any abdominal pain patient denies nausea vomiting diarrhea. Patient denies headache patient denies numbness weakness. - Related Data Home Medications Medication Instructions Recorded Confirmed Benazepril HCl 20 mg PO HS 04/09/21 04/02/23 Insulin Glargine,Hum.rec.anlog 20 unit SQ HS 04/09/21 04/02/23 [Lantus Solostar Pen] Levothyroxine Sodium 25 mcg PO DAILY 04/09/21 04/02/23 Simvastatin 40 mg PO DAILY 04/09/21 04/02/23 allopurinoL [Zyloprim] 300 mg PO DAILY 04/09/21 04/02/23 hydroCHLOROthiazide 25 mg PO DAILY 04/09/21 04/02/23 ALPRAZolam [Xanax] 0.125 - 0.25 mg PO Q6H PRN 04/02/23 04/02/23 Aspirin EC [Ecotrin Low Dose] 81 mg PO DAILY 04/02/23 04/02/23 Cholecalciferol [Vitamin D3 (25 25 mcg PO DAILY 04/02/23 04/02/23 Mcg = 1000 Iu)] metFORMIN HCL ER [Glucophage XR] 500 mg PO BID 04/02/23 04/02/23 Allergies Allergy/AdvReac Type Severity Reaction Status Date / Time No Known Allergies Allergy Verified 04/04/23 10:15 Review of Systems ROS Statement: Those systems with pertinent positive or pertinent negative responses have been documented in the HPI. ROS Other: All systems not noted in ROS Statement are negative. Past Medical History Past Medical History: Cancer, Diabetes Mellitus, Hyperlipidemia, Hypertension, Osteoarthritis (OA), Thyroid Disorder Additional Past Medical History / Comment(s): Hx Covid 04/23/21 with bodyaches and sore throat. Hx right breast cancer 26 yrs ago, had 6 weeks of radiation. History of Any Multi-Drug Resistant Organisms: None Reported Past Surgical History: Hysterectomy Additional Past Surgical History / Comment(s): 1/2 thyroid removed, varicose vein stripped. Past Anesthesia/Blood Transfusion Reactions: Postoperative Nausea & Vomiting (PONV) Past Psychological History: No Psychological Hx Reported Smoking Status: Former smoker Past Alcohol Use History: None Reported Past Drug Use History: None Reported - Past Family History Mother Family Medical History: No Reported History General Exam - General Exam Comments Initial Comments: GENERAL: Patient is well-developed and well-nourished. Patient is nontoxic and well- hydrated and is mild distress. ENT: Neck is soft and supple. No significant lymphadenopathy is noted. Oropharynx is clear. Moist mucous membranes. Neck has full range of motion without eliciting any pain. EYES: The sclera were anicteric and conjunctiva were pink and moist. Extraocular movements were intact and pupils were equal round and reactive to light. Eyelids were unremarkable. PULMONARY: Unlabored respirations. Good breath sounds bilaterally. No audible rales rhonchi or wheezing was noted. CARDIOVASCULAR: Patient is tachycardic at about 150 beats a minute ABDOMEN: Soft and nontender with normal bowel sounds. SKIN: Skin is clear with no lesions or rashes and otherwise unremarkable. NEUROLOGIC: Patient is alert and oriented x3. Cranial nerves II through XII are grossly intact. Motor and sensory are also intact. Normal speech, volume and content. Symmetrical smile. MUSCULOSKELETAL: Normal extremities with adequate strength and full range of motion. No lower extremity swelling or edema. No calf tenderness. LYMPHATICS: No significant lymphadenopathy is noted PSYCHIATRIC: Normal psychiatric evaluation. Limitations: no limitations Course Vital Signs 04/04/23 10:13 Temperature 98.7 F Pulse Rate 153 H Respiratory 20 Rate Blood Pressure 87/51 O2 Sat by Pulse 98 Oximetry Medical Decision Making - Medical Decision Making EKG is interpreted by myself. EKG shows atrial flutter at 141 bpm QRS 156 QT intervals 293 QTC is 375. Patient's EKG shows no ST segment elevation or depression. EKG is interpreted by myself. EKG was repeated because patient appeared to go back into a sinus rhythm while in the emergency department. Prior to getting Cardizem. Patient's EKG shows a sinus rhythm with frequent PVCs at 94 bpm LA interval 254 QRS is 92 QT interval 356 QTC is 408. Patient's EKG shows no ST segment elevation or depression. Was pt. sent in by a medical professional or institution (, [facility], [employer], urgent care, hospital, or senior care...) When possible be specific @ -No Did you speak to anyone other than the patient for history (EMS, parent, family, police, friend...)? What history was obtained from this source @ -No Did you review nursing and triage notes (agree or disagree)? Why? @ -I reviewed and agree with nursing and triage notes Were old charts reviewed (outside hosp., previous admission, EMS record, old EKG, old radiological studies, urgent care reports/EKG's, senior care records)? Report findings @ -I reviewed prior charts prior labyrinthine EKGs on this patient Differential Diagnosis (chest pain, altered mental status, abdominal pain women, abdominal pain men, vaginal bleeding, weakness, fever, dyspnea, syncope, headache, dizziness, GI bleed, back pain, seizure, CVA, palpatations, mental health, musculoskeletal)? @ -Differential Dyspnea: Coronary syndrome, arrhythmia, tamponade, asthma, COPD, pulmonary embolism, pneumonia, pneumothorax, pulmonary effusion, anaphylaxis, diabetic ketoacidosis, flailed chest, pulmonary contusion, diaphragmatic rupture, anemia, neuromuscular, this is not meant to be an all-inclusive list. EKG interpreted by me (3pts min.). @ -As above X-rays interpreted by me (1pt min.). @ -Chest x-ray shows no acute abnormality CT interpreted by me (1pt min.). @ -None done U/S interpreted by me (1pt. min.). @ -None done What testing was considered but not performed or refused? (CT, X-rays, U/S, labs)? Why? @ -None What meds were considered but not given or refused? Why? @ -None Did you discuss the management of the patient with other professionals (professionals i.e. [facility], [employer], lab, RT, psych nurse, high school social studies teacher, cruller maker, teacher, chief strategy officer, counseling case manager)? Give summary @ -I spoke with some physicians physicians agreed to admit the patient Was smoking cessation discussed for >3mins.? @ -No Was critical care preformed (if so, how long)? @ -35 minutes Were there social determinants of health that impacted care today? How? (Homelessness, low income, unemployed, alcoholism, drug addiction, transport ation, low edu. Level, literacy, decrease access to med. care, alf, rehab)? @ -No Was there de-escalation of care discussed even if they declined (Discuss DNR or withdrawal of care, Hospice)? DNR status @ -No What co-morbidities impacted this encounter? (DM, HTN, Smoking, COPD, CAD, Cancer, CVA, ARF, Chemo, Hep., AIDS, mental health diagnosis, sleep apnea, morbid obesity)? @ -None Was patient admitted / discharged? Hospital course, mention meds given and route, prescriptions, significant lab abnormalities, going to OR and other pertinent info. @ -Patient was in atrial flutter at 150 beats a minute. I started the patient on heparin and I ordered Cardizem however test for the Cardizem was to be given patient converted to a normal sinus rhythm. I spoke with some physicians agreed to admit the patient admitted the patient remaining orders I consulted card iology. Patient has been in atrial flutter twice in the hospital last 3 days and so to prevent her from continuing to come back. Admitting her and have a cardiology Undiagnosed new problem with uncertain prognosis? @ -No Drug Therapy requiring intensive monitoring for toxicity (Heparin, Nitro, Insulin, Cardizem)? @ -No Were any procedures done? @ -No Diagnosis/symptom? @ -A flutter with rapid ventricular response Acute, or Chronic, or Acute on Chronic? @ -Acute Uncomplicated (without systemic symptoms) or Complicated (systemic symptoms)? @ -Complicated Side effects of treatment? @ -No Exacerbation, Progression, or Severe Exacerbation? @ -No Poses a threat to life or bodily function? How? (Chest pain, USA, SD, pneumonia, PE, COPD, DKA, ARF, appy, cholecystitis, CVA, Diverticulitis, Homicidal, Suicidal, threat to staff... and all critical care pts) @ -Yes this could lead to poor perfusion and end organ dysfunction - Lab Data Result diagrams: 04/04/23 11:12 04/04/23 11:12 Lab Results 04/04/23 04/04/23 04/04/23 Range/Units 11:12 11:12 11:12 WBC 9.2 (3.8-10.6) k/uL RBC 4.91 (3.80-5.40) m/uL Hgb 15.9 (11.4-16.0) gm/dL Hct 46.7 H (34.0-46.0) % MCV 95.0 (80.0-100.0) fL MCH 32.3 (25.0-35.0) pg MCHC 34.0 (31.0-37.0) g/dL RDW 12.7 (11.5-15.5) % Plt Count (150-450) k/uL MPV 13.2 Neutrophils % (Manual) 42 % Lymphocytes % (Manual) 42 % Monocytes % (Manual) 14 % Eosinophils % (Manual) 2 % Neutrophils # (Manual) 3.86 (1.3-7.7) k/uL Lymphocytes # (Manual) 3.86 (1.0-4.8) k/uL Monocytes # (Manual) 1.29 H (0-1.0) k/uL Eosinophils # (Manual) 0.18 (0-0.7) k/uL Nucleated RBCs 0 (0-0) /100 WBC Manual Slide Review Performed RBC Morphology Normal PT 10.5 (10.0-12.5) sec INR 0.9 (<1.2) APTT 25.1 (22.0-30.0) sec Sodium 138 (137-145) mmol/L Potassium 3.9 (3.5-5.1) mmol/L Chloride 99 (98-107) mmol/L Carbon Dioxide 22 (22-30) mmol/L Anion Gap 17 mmol/L BUN 18 H (7-17) mg/dL Creatinine 0.93 (0.52-1.04) mg/dL Est GFR (CKD-EPI)AfAm 71 (>60 ml/min/1.73 sqM) Est GFR (CKD-EPI)NonAf 61 (>60 ml/min/1.73 sqM) Glucose 162 H (74-99) mg/dL Plasma Lactic Acid Mihai (0.7-2.0) mmol/L Calcium 9.5 (8.4-10.2) mg/dL Magnesium 1.5 L (1.6-2.3) mg/dL Total Bilirubin 0.9 (0.2-1.3) mg/dL AST 32 (14-36) U/L ALT 26 (4-34) U/L Alkaline Phosphatase 79 (38-126) U/L Troponin I (0.000-0.034) ng/mL NT-Pro-B Natriuret Pep 141 pg/mL Total Protein 7.6 (6.3-8.2) g/dL Albumin 4.5 (3.5-5.0) g/dL TSH 2.950 (0.465-4.680) mIU/L 04/04/23 04/04/23 Range/Units 11:12 11:12 WBC (3.8-10.6) k/uL RBC (3.80-5.40) m/uL Hgb (11.4-16.0) gm/dL Hct (34.0-46.0) % MCV (80.0-100.0) fL MCH (25.0-35.0) pg MCHC (31.0-37.0) g/dL RDW (11.5-15.5) % Plt Count (150-450) k/uL MPV Neutrophils % (Manual) % Lymphocytes % (Manual) % Monocytes % (Manual) % Eosinophils % (Manual) % Neutrophils # (Manual) (1.3-7.7) k/uL Lymphocytes # (Manual) (1.0-4.8) k/uL Monocytes # (Manual) (0-1.0) k/uL Eosinophils # (Manual) (0-0.7) k/uL Nucleated RBCs (0-0) /100 WBC Manual Slide Review RBC Morphology PT (10.0-12.5) sec INR (<1.2) APTT (22.0-30.0) sec Sodium (137-145) mmol/L Potassium (3.5-5.1) mmol/L Chloride (98-107) mmol/L Carbon Dioxide (22-30) mmol/L Anion Gap mmol/L BUN (7-17) mg/dL Creatinine (0.52-1.04) mg/dL Est GFR (CKD-EPI)AfAm (>60 ml/min/1.73 sqM) Est GFR (CKD-EPI)NonAf (>60 ml/min/1.73 sqM) Glucose (74-99) mg/dL Plasma Lactic Acid Mihai 2.5 H* (0.7-2.0) mmol/L Calcium (8.4-10.2) mg/dL Magnesium (1.6-2.3) mg/dL Total Bilirubin (0.2-1.3) mg/dL AST (14-36) U/L ALT (4-34) U/L Alkaline Phosphatase (38-126) U/L Troponin I <0.012 (0.000-0.034) ng/mL NT-Pro-B Natriuret Pep pg/mL Total Protein (6.3-8.2) g/dL Albumin (3.5-5.0) g/dL TSH (0.465-4.680) mIU/L Disposition Clinical Impression: Atrial flutter with rapid ventricular response Disposition: ADMITTED IP TO THIS HOSP Referrals: Kevin Nails MD [Primary Care Provider] - 1-2 days Time of Disposition: 13:02
[2023-04-04] MEDS: DILTIAZEM DRIP BOLUS FROM BAG 1 MG SOLN IV ONE (11:30)
[2023-04-04] MEDS: DILTIAZEM 125 MG in SODIUM CHLORIDE 0.9% 100 ML IV SCH (11:30)
[2023-04-04 11:33] LABS: ALT 26 U/L (4-34); AST 32 U/L (14-36); African American GFR (CKD) 71 (>60 ml/min/1.73 sqM); Albumin 4.5 g/dL (3.5-5.0); Alkaline Phosphatase 79 U/L (38-126); Anion Gap 17 mmol/L; Blood Urea Nitrogen 18 mg/dL (7-17); Calcium 9.5 mg/dL (8.4-10.2); Carbon Dioxide 22 mmol/L (22-30); Chloride 99 mmol/L (98-107); Glucose 162 mg/dL (74-99); Magnesium 1.5 mg/dL (1.6-2.3); Non-African American GFR(CKD) 61 (>60 ml/min/1.73 sqM); Potassium 3.9 mmol/L (3.5-5.1); Sodium 138 mmol/L (137-145); Total Bilirubin 0.9 mg/dL (0.2-1.3); Total Protein 7.6 g/dL (6.3-8.2)
[2023-04-04] MEDS: SODIUM CHLORIDE 0.9% 1,000 ML IV STA (11:35)
[2023-04-04] MEDS: LORazepam 2 MG/ML INJ IV STA (11:36)
--- NOTE | 2023-04-04 11:40 | XR ---
EXAMINATION TYPE: XR chest 2V DATE OF EXAM: 04/04/2023 COMPARISON: 04/02/2023 HISTORY: 72-year-old female with weakness, shortness of breath, difficulty in breathing TECHNIQUE: PA and lateral views FINDINGS: The cardiomediastinal silhouette, aorta, and pulmonary vasculature are within normal limits. Lungs an d pleural spaces are clear. IMPRESSION: No acute cardiopulmonary process.
[2023-04-04 11:42] LABS: NT-Pro-B-Type Natriuretic Pept 141 pg/mL
[2023-04-04 11:45] LABS: HCT 46.7 % (34.0-46.0); HGB 15.9 gm/dL (11.4-16.0); INR 0.9 (<1.2); MCH 32.3 pg (25.0-35.0); Mean Platelet Volume 13.2; Partial Thromboplastin Time 25.1 sec (22.0-30.0); Prothrombin Time 10.5 sec (10.0-12.5); RBC 4.91 m/uL (3.80-5.40); RDW 12.7 % (11.5-15.5); WBC 9.2 k/uL (3.8-10.6)
[2023-04-04 12:37] LABS: Eosinophils # (M) 0.18 k/uL (0-0.7); Lymphocytes # (M) 3.86 k/uL (1.0-4.8); Monocytes # (M) 1.29 k/uL (0-1.0); Neutrophils # (M) 3.86 k/uL (1.3-7.7); Neutrophils % (M) 42 %; Nucleated Red Blood Cells 0 /100 WBC (0-0); Total Cells Counted 100
[2023-04-04 12:38] LABS: RBC Morphology Normal
[2023-04-04] MEDS ORDERED: ACETAMINOPHEN TAB 325 MG TAB PO PRN (13:02)
[2023-04-04] MEDS ORDERED: NALOXONE 0.4 MG/ML 1 ML VIAL IVP PRN (13:02)
[2023-04-04] MEDS: METOPROLOL TARTRATE 25 MG TAB PO SCH (13:46)
[2023-04-04] MEDS: HEPARIN SOD,PORK IN 0.45% NACL 25,000 UNIT in 0.45% NACL 1 250ML.BAG IV SCH (13:47)
[2023-04-04] MEDS: MAGNESIUM SULFATE-D5W PMX 1 GM in DEXTROSE/WATER 1 100ML.BAG IVPB ONE (13:47)
[2023-04-04] MEDS: HEPARIN SODIUM 1,000 UN/ML (10ML VL) IV ONE (13:51)
--- NOTE | 2023-04-04 17:08 | P.HPIM ---
History of Present Illness H&P Date: 04/04/23 Chief Complaint: palpitations 72 year old woman with history of HTN, HLD, DM, who was recently seen in the ER for palpitations, presented for low/unreadable BP and palpitations. Pt says that she routinely takes her BP at home, but over the last several days she had some readings that did not register with her home cuff which was associated with palpitations and some sharp chest and back pain. She was seen in the ER for this issue on 04/02, and at that time had also noted some URI symptoms. She was noted to have COVID + status and EKG c/w narrow complex tachycardia suspicious for atrial flutter. At that time she was recommended to be admitted to observation, but deferred to outpatient management. Unfortunately, she had a repeat episode of unreadable BP and palpitations today which prompted her presentation to the ER. She associated today's symptoms with diaphoresis, nausea, but denies vomiting, fevers, chills, cough, dyspnea, abd pain. In the ER, patient was afebrile, 87/53, HR 153, 98% on room air. CBC was unremarkable, BMP showed BUN of 18. LFTs unremarkable. Lactic acid was 2.5. Coags unremarkable. EKG showed Atrial Flutter with RVR versus AVNRT (personally interpreted.) CXR showed clear parenchyma bilaterally. Pt was started on a dilt and heparin gtt and recommended to be admitted by the ER physician for further evaluation. Prior to starting the dilt gtt however, patient spontaneously converted to NSR with multiple PVCs as seen on repeat EKG (personally interpreted.) All Systems reviewed and pertinent positives and negatives noted in HPI, all other symptoms are negative Gen: in no apparent distress, resting comfortably in bed Eyes: PERRL, no scleral injection or icterus HENT: normocephalic, atraumatic, good hearing acuity, moist mucous membranes Neck: no tracheal deviation, full range of motion Resp: good air exchange, breathing comfortably with no accessory muscle use, no tactile fremitus, clear to auscultation bilaterally CVS: good distal perfusion x 4, no pitting edema, regular rate and rhythm without murmurs GI: soft, NTTP, ND, no hepatosplenomegaly : no suprapubic tenderness, no CVAT, souza catheter not present MSK: no clubbing, no cyanosis, no noted contractures of extremities Skin: no noted rashes, petechiae; temperature of skin is appropriate Neuro: moving all extremities without signs of weakness, CN II-XII intact Psych: cooperative, euthymic mood, insight and judgment intact Labs and imaging as above Assessment/plan: Atrial flutter with RVR -Admit patient to observation -Echocardiogram ordered -Cardiology was consulted -Metoprolol 25 mg twice a day was initiated -Continue heparin drip, follow PTT for toxicity -Monitor patient on telemetry Hypertension Hyperlipidemia Diabetes type 2 -Home medications reviewed and reconciled Patient is full code Past Medical History Past Medical History: Cancer, Diabetes Mellitus, Hyperlipidemia, Hypertension, Osteoarthritis (OA), Thyroid Disorder Additional Past Medical History / Comment(s): Hx Covid 04/23/21 with bodyaches and sore throat. Hx right breast cancer 26 yrs ago, had 6 weeks of radiation. History of Any Multi-Drug Resistant Organisms: None Reported Past Surgical History: Hysterectomy Additional Past Surgical History / Comment(s): 1/2 thyroid removed, varicose vein stripped. Past Anesthesia/Blood Transfusion Reactions: Postoperative Nausea & Vomiting (PONV) Smoking Status: Former smoker - Past Family History Mother Family Medical History: No Reported History Medications and Allergies Home Medications Medication Instructions Recorded Confirmed Type Benazepril HCl 20 mg PO HS 04/09/21 04/04/23 History Insulin Glargine,Hum.rec.anlog 20 unit SQ HS 04/09/21 04/04/23 History [Lantus Solostar Pen] Levothyroxine Sodium 25 mcg PO DAILY 04/09/21 04/04/23 History Simvastatin 40 mg PO DAILY 04/09/21 04/04/23 History allopurinoL [Zyloprim] 300 mg PO DAILY 04/09/21 04/04/23 History hydroCHLOROthiazide 25 mg PO DAILY 04/09/21 04/04/23 History ALPRAZolam [Xanax] 0.125 - 0.25 mg PO Q6H PRN 04/02/23 04/04/23 History Aspirin EC [Ecotrin Low Dose] 81 mg PO DAILY 04/02/23 04/04/23 History Cholecalciferol [Vitamin D3 (25 25 mcg PO DAILY 04/02/23 04/04/23 History Mcg = 1000 Iu)] metFORMIN HCL ER [Glucophage XR] 500 mg PO BID 04/02/23 04/04/23 History Allergies Allergy/AdvReac Type Severity Reaction Status Date / Time No Known Allergies Allergy Verified 04/04/23 12:58 Physical Exam Osteopathic Statement: *. No significant issues noted on an osteopathic structural exam other than those noted in the History and Physical/Consult. Vitals: Vital Signs Temp Pulse Pulse Resp BP BP Pulse Ox 04/04/23 16:39 82 18 154/79 95 04/04/23 14:35 62 62 18 115/94 94 L 04/04/23 13:37 68 16 131/80 99 04/04/23 12:15 77 114/86 04/04/23 11:15 92 16 94/76 99 04/04/23 10:13 98.7 F 153 H 20 87/51 98 Intake and Output 04/04/23 04/04/23 04/04/23 06:59 14:59 22:59 Other: Weight 64.864 kg 64.864 kg Results CBC & Chem 7: 04/04/23 11:12 04/04/23 11:12 Labs: Abnormal Lab Results - Last 24 Hours (Table) 04/04/23 04/04/23 04/04/23 Range/Units 11:12 11:12 11:12 Hct 46.7 H (34.0-46.0) % Monocytes # (Manual) 1.29 H (0-1.0) k/uL BUN 18 H (7-17) mg/dL Glucose 162 H (74-99) mg/dL Plasma Lactic Acid Mihai 2.5 H* (0.7-2.0) mmol/L Magnesium 1.5 L (1.6-2.3) mg/dL
[2023-04-04] MEDS: INSULIN ASPART (NovoLOG) 100 UNIT/ML VIAL SQ SCH (18:05)
[2023-04-04 20:28] LABS: Glucose,Whole Blood 205 mg/dL (70-110)
[2023-04-04] MEDS: INSULIN DETEMIR (LEVEMIR) 100 UNIT/ML SYR SQ SCH (21:15)
[2023-04-04 23:28] VITALS: RESP 16
[2023-04-05] MEDS: lisinopriL 20 MG TAB PO SCH (01:40)
[2023-04-05 04:16] VITALS: TEMP 97.7
[2023-04-05 06:12] LABS: Glucose,Whole Blood 90 mg/dL (70-110)
[2023-04-05] MEDS: LEVOTHYROXINE 25 MCG TAB PO SCH (06:21)
[2023-04-05 08:22] LABS: Potassium 3.8 mmol/L (3.5-5.1)
[2023-04-05 08:23] LABS: African American GFR (CKD) 81 (>60 ml/min/1.73 sqM); Anion Gap 9 mmol/L; Blood Urea Nitrogen 17 mg/dL (7-17); Calcium 8.9 mg/dL (8.4-10.2); Carbon Dioxide 29 mmol/L (22-30); Chloride 103 mmol/L (98-107); Glucose 86 mg/dL (74-99); Magnesium 1.8 mg/dL (1.6-2.3); Non-African American GFR(CKD) 70 (>60 ml/min/1.73 sqM); Sodium 141 mmol/L (137-145)
[2023-04-05 08:25] LABS: HCT 41.8 % (34.0-46.0); HGB 14.1 gm/dL (11.4-16.0); MCHC 33.8 g/dL (31.0-37.0); MCV 94.8 fL (80.0-100.0); Mean Platelet Volume 13.2; WBC 6.6 k/uL (3.8-10.6)
[2023-04-05] MEDS ORDERED: hydroCHLOROthiazide 25 MG TAB PO SCH (09:00)
[2023-04-05 09:15] LABS: Basophils # (M) 0.07 k/uL (0-0.2); Eosinophils # (M) 0.53 k/uL (0-0.7); Monocytes # (M) 0.53 k/uL (0-1.0); Neutrophils # (M) 2.05 k/uL (1.3-7.7); Neutrophils % (M) 31 %; Nucleated Red Blood Cells 0 /100 WBC (0-0); Total Cells Counted 200
[2023-04-05 09:16] LABS: RBC Morphology Normal
[2023-04-05] MEDS: allopurinoL 300 MG TAB PO SCH (09:57)
[2023-04-05] MEDS: ASPIRIN 81 MG PO SCH (09:57)
[2023-04-05] MEDS: CHOLECALCIFEROL 25 MCG (1000 IU) TABLET PO SCH (09:57)
[2023-04-05] MEDS: ATORVASTATIN 20 MG TAB PO SCH (09:57)
[2023-04-05 10:12] VITALS: BP 135/73; PULSE 68
--- NOTE | 2023-04-05 11:56 | P.DS ---
Providers Date of admission: 04/04/23 13:02 Expected date of discharge: 04/05/23 Attending physician: Laith Lubin MD Consults: 04/04/23 13:02 Consult Physician Routine Consulting Provider: Lucila Suggs Consult Reason/Comments: Afib with RVR Do you want consulting provider notified?: Yes Consult Physician Urgent Consulting Provider: Cardiology Ifeanyi Consult Reason/Comments: Atrial flutter with rapid ventricular response Do you want consulting provider notified?: Yes [facility] Course: AVNRT Hypertension Hyperlipidemia Diabetes type 2 Hospital Course: 72 year old woman with history of HTN, HLD, DM, who was recently seen in the ER for palpitations, presented for low/unreadable BP and palpitations. In the ER, patient was afebrile, 87/53, HR 153, 98% on room air. CBC was unremarkable, BMP showed BUN of 18. LFTs unremarkable. Lactic acid was 2.5. Coags unremarkable. EKG showed Atrial Flutter with RVR versus AVNRT (personally interpreted.) CXR showed clear parenchyma bilaterally. Pt was started on a dilt and heparin gtt and recommended to be admitted by the ER physician for further evaluation. 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 I spent 34 minutes coordinating this discharge on 04/05 Gen: in no apparent distress, resting comfortably in bed Eyes: PERRL, no scleral injection or icterus HENT: normocephalic, atraumatic, good hearing acuity, moist mucous membranes Neck: no tracheal deviation, full range of motion Resp: good air exchange, breathing comfortably with no accessory muscle use, no tactile fremitus, clear to auscultation bilaterally CVS: good distal perfusion x 4, no pitting edema, regular rate and rhythm without murmurs GI: soft, NTTP, ND, no hepatosplenomegaly : no suprapubic tenderness, no CVAT, souza catheter not present MSK: no clubbing, no cyanosis, no noted contractures of extremities Skin: no noted rashes, petechiae; temperature of skin is appropriate Neuro: moving all extremities without signs of weakness, CN II-XII intact Psych: cooperative, euthymic mood, insight and judgment intact Patient Condition at Discharge: Good Plan - Discharge Summary Discharge Rx Participant: No New Discharge Prescriptions: New Metoprolol Tartrate [Lopressor] 25 mg PO BID #90 tab Continue Insulin Glargine,Hum.rec.anlog [Lantus Solostar Pen] 20 unit SQ HS Benazepril HCl 20 mg PO HS Simvastatin 40 mg PO DAILY Levothyroxine Sodium 25 mcg PO DAILY allopurinoL [Zyloprim] 300 mg PO DAILY ALPRAZolam [Xanax] 0.125 - 0.25 mg PO Q6H PRN PRN Reason: Anxiety metFORMIN HCL ER [Glucophage XR] 500 mg PO BID Cholecalciferol [Vitamin D3 (25 Mcg = 1000 Iu)] 25 mcg PO DAILY Aspirin EC [Ecotrin Low Dose] 81 mg PO DAILY Discontinued hydroCHLOROthiazide 25 mg PO DAILY Discharge Medication List Benazepril HCl 20 mg PO HS 04/09/21 [History] Insulin Glargine,Hum.rec.anlog [Lantus Solostar Pen] 20 unit SQ HS 04/09/21 [History] Levothyroxine Sodium 25 mcg PO DAILY 04/09/21 [History] Simvastatin 40 mg PO DAILY 04/09/21 [History] allopurinoL [Zyloprim] 300 mg PO DAILY 04/09/21 [History] ALPRAZolam [Xanax] 0.125 - 0.25 mg PO Q6H PRN 04/02/23 [History] Aspirin EC [Ecotrin Low Dose] 81 mg PO DAILY 04/02/23 [History] Cholecalciferol [Vitamin D3 (25 Mcg = 1000 Iu)] 25 mcg PO DAILY 04/02/23 [History] metFORMIN HCL ER [Glucophage XR] 500 mg PO BID 04/02/23 [History] Metoprolol Tartrate [Lopressor] 25 mg PO BID #90 tab 04/05/23 [Rx] Follow up Appointment(s)/Referral(s): Saurabh Tony MD [STAFF PHYSICIAN] - 1 Week (Please call THURSDAY to make a follow up appointment when offices are open.) Kevin Nails MD [Primary Care Provider] - 1-2 days (Offices are closed please call to make a follow up appointment) Marcelo Tierney MD [STAFF PHYSICIAN] - 1 Week (For future follow up) Patient Instructions/Handouts: A-fib (Atrial Fibrillation) (DC), COVID-19 (Coronavirus Disease 2019) (DC) Discharge Disposition: HOME SELF-CARE
--- NOTE | 2023-04-05 13:19 | P.CRDCN ---
History of Present Illness Consult date: 04/05/23 Reason for Consult (text): Weakness, heart palpitations History of present illness: This is Donnie Durham NP, I'm dictating on behalf of Dr. Tony's H&P and A&P The patient was interviewed and examined. HPI: Patient is a pleasant 72-year-old female with a past medical history includes hypertension, hyperlipidemia, diabetes, and Covid infection who presented to the hospital with complaints of weakness and heart palpitations. Patient reports she was here last week for the same issue, and was diagnosed with atrial flutter and sent home. She reports intermittent episodes of weakness and heart palpitations, that correlated together. Yesterday she began to have the same symptoms as she did last week, and came to the hospital again for evaluation. Upon arrival to the ER, she was found to be in AV Samia Re-entry tachycardia, that was interpreted by the EKG machine as atrial flutter. Before cardizem was started, the patient converted back to normal sinus rhythm. Heparin IV was started. Today, patient continues in normal sinus rhythm. She reports feeling much better than on admission. Detailed explanation was given to the patient concerning AV Samia reentry tachycardia, and that the definitive treatment is ablation. Patient was able to ask questions, and all were answered. From our standpoint the patient can be discharged home. ROS: [No fever, chills, or rigors] [no cough, phlegm, or expectoration] [no nausea, vomiting, or diarrhea] [no hematuria, dysuria] [no musculoskelatal complaints] [no strokes or seizures] [no skin lesions] EXAMINATION: GENERAL: Well-appearing, well-nourished and in no acute distress. NECK: Supple without JVD or thyromegaly. LUNGS: Breath sounds clear to auscultation bilaterally. Respiration equal and unlabored. No wheezes, rales or rhonchi. HEART: Regular rate and rhythm without murmurs, rubs or gallops. S1 and S2 heard. EXTREMITIES: Normal range of motion, no edema. No clubbing or cyanosis. Peripheral pulses intact and strong. REVIEW OF LABS, ECG & MEDICAL DATA: LABS: White count 6.6, hemoglobin 14.1, sodium 141, potassium 3.8, chloride 103, BUN 17, creatinine 0.83, calcium 8.9, magnesium 1.8, troponin less than 0.012, BNP 141, TSH 2.95 EKG: EKG dated 04/04/2023 at 10:37 AM demonstrates AV samia reentry tachycardia with a rate of 141. EKG dated 04/04/2023 at 11:17 AM demonstrates sinus rhythm with PVCs. IMAGING: Chest x-ray dated 04/04/2023 demonstrates no acute cardiopulmonary process. VITALS: Temp 97.7, pulse 71, respirations 16, blood pressure 113/73, O2 saturati on 97% on room air IMPRESSION: 1. AV Samia Reentry Tachycardia 2. Covid-19 Infection 3. Diabetes 4. Hypertension PLAN: Patient may be discharged from a cardiology standpoint. Patient has AV samia reentry tachycardia, likely precipitated by Covid infection. Discontinue HCTZ. Discontinue heparin and cardizem drips. Continue benazepril at home. May take 10 or 20mg, depending on blood pressure a nd how she is feeling. Patient to start metoprolol 25mg BID. If she continues to have palpitation ep isodes, she should increase metoprolol to 50 BID. F/U will be made by the office to see Dr. Tony for ablation. Check hgb A1c and lipid panel prior to discharge. Thank you for the consult and allowing us to participate in the care of this patient. Past Medical History Past Medical History: Cancer, Diabetes Mellitus, Hyperlipidemia, Hypertension, Osteoarthritis (OA), Thyroid Disorder Additional Past Medical History / Comment(s): Hx Covid 04/23/21 with bodyaches and sore throat. Hx right breast cancer 26 yrs ago, had 6 weeks of radiation. History of Any Multi-Drug Resistant Organisms: None Reported Past Surgical History: Hysterectomy Additional Past Surgical History / Comment(s): 1/2 thyroid removed, varicose vein stripped. Past Anesthesia/Blood Transfusion Reactions: Postoperative Nausea & Vomiting (PONV) Past Psychological History: No Psychological Hx Reported Smoking Status: Former smoker Past Alcohol Use History: None Reported Additional Past Alcohol Use History / Comment(s): Quit smoking 30 yrs ago. Past Drug Use History: None Reported - Past Family History Mother Family Medical History: No Reported History Medications and Allergies Home Medications Medication Instructions Recorded Confirmed Type Benazepril HCl 20 mg PO HS 04/09/21 04/04/23 History Insulin Glargine,Hum.rec.anlog 20 unit SQ HS 04/09/21 04/04/23 History [Lantus Solostar Pen] Levothyroxine Sodium 25 mcg PO DAILY 04/09/21 04/04/23 History Simvastatin 40 mg PO DAILY 04/09/21 04/04/23 History allopurinoL [Zyloprim] 300 mg PO DAILY 04/09/21 04/04/23 History ALPRAZolam [Xanax] 0.125 - 0.25 mg PO Q6H PRN 04/02/23 04/04/23 History Aspirin EC [Ecotrin Low Dose] 81 mg PO DAILY 04/02/23 04/04/23 History Cholecalciferol [Vitamin D3 (25 25 mcg PO DAILY 04/02/23 04/04/23 History Mcg = 1000 Iu)] metFORMIN HCL ER [Glucophage XR] 500 mg PO BID 04/02/23 04/04/23 History Metoprolol Tartrate [Lopressor] 25 mg PO BID #90 tab 04/05/23 Rx Allergies Allergy/AdvReac Type Severity Reaction Status Date / Time No Known Allergies Allergy Verified 04/04/23 12:58 Physical Exam Vitals: Vital Signs Temp Pulse Pulse Pulse Resp BP BP 04/05/23 04:12 97.7 F 71 16 04/05/23 02:35 16 04/04/23 23:22 98.2 F 66 16 113/66 04/04/23 21:15 04/04/23 19:22 98.0 F 71 18 04/04/23 17:43 73 18 111/70 04/04/23 16:39 82 18 154/79 04/04/23 16:00 73 16 111/70 04/04/23 14:35 62 62 18 115/94 04/04/23 13:37 68 16 131/80 04/04/23 12:15 77 114/86 04/04/23 11:15 92 16 94/76 04/04/23 10:13 98.7 F 153 H 20 87/51 BP Pulse Ox 04/05/23 04:12 113/73 97 04/05/23 02:35 04/04/23 23:22 96 04/04/23 21:15 96 04/04/23 19:22 110/67 04/04/23 17:43 97 04/04/23 16:39 95 01/06/24 16:00 97 04/04/23 14:35 94 L 04/04/23 13:37 99 04/04/23 12:15 04/04/23 11:15 99 04/04/23 10:13 98 Intake and Output 04/04/23 04/05/23 04/05/23 22:59 06:59 14:59 Intake Total 66.553 Balance 66.553 Intake: Intake, IV Titration 66.553 Amount Heparin Sod,Pork in 0.45% 66.553 NaCl 25,000 unit In 0.45 % NaCl 1 250ml.bag @ 12 UNITS/KG/HR 7.784 mls/hr IV .Q24H [facility] Rx#: [id number] Other: Voiding Method Toilet Toilet # Voids 1 1 Weight 64.864 kg Results 04/05/23 07:15 04/05/23 07:15 Cardiac Enzymes 04/04/23 04/04/23 Range/Units 11:12 11:12 AST 32 (14-36) U/L Troponin I <0.012 (0.000-0.034) ng/mL Coagulation 04/04/23 04/04/23 04/05/23 Range/Units 11:12 20:21 07:15 PT 10.5 (10.0-12.5) sec APTT 25.1 42.0 H 54.4 H (22.0-30.0) sec CBC 04/04/23 04/05/23 Range/Units 11:12 07:15 WBC 9.2 6.6 (3.8-10.6) k/uL RBC 4.91 4.40 (3.80-5.40) m/uL Hgb 15.9 14.1 (11.4-16.0) gm/dL Hct 46.7 H 41.8 (34.0-46.0) % Plt Count (150-450) k/uL Comprehensive Metabolic Panel 04/04/23 04/05/23 Range/Units 11:12 07:15 Sodium 138 141 (137-145) mmol/L Potassium 3.9 3.8 (3.5-5.1) mmol/L Chloride 99 103 (98-107) mmol/L Carbon Dioxide 22 29 (22-30) mmol/L BUN 18 H 17 (7-17) mg/dL Creatinine 0.93 0.83 (0.52-1.04) mg/dL Glucose 162 H 86 (74-99) mg/dL Calcium 9.5 8.9 (8.4-10.2) mg/dL AST 32 (14-36) U/L ALT 26 (4-34) U/L Alkaline Phosphatase 79 (38-126) U/L Total Protein 7.6 (6.3-8.2) g/dL Albumin 4.5 (3.5-5.0) g/dL Current Medications Generic Name Dose Route Start Last Admin Trade Name Freq PRN Reason Stop Dose Admin Acetaminophen 650 mg 04/04/23 13:02 Acetaminophen Tab 325 Mg Tab PO Q6HR PRN Mild Pain or Fever > 100.5 Allopurinol 300 mg 04/05/23 09:00 Allopurinol 300 Mg Tab PO DAILY [facility] Aspirin 81 mg 04/05/23 09:00 Aspirin 81 Mg PO DAILY [facility] Atorvastatin Calcium 20 mg 04/05/23 09:00 Atorvastatin 20 Mg Tab PO DAILY [facility] Cholecalciferol 25 mcg 04/05/23 09:00 Cholecalciferol 25 Mcg (1000 Iu) Tablet PO DAILY [facility] Insulin Aspart 0 unit 04/04/23 17:30 04/05/23 06:16 Insulin Aspart (Novolog) 100 Unit/Ml Vial SQ Not Given AC-TID [facility] Protocol Insulin Detemir 20 unit 04/04/23 21:00 04/04/23 21:15 Insulin Detemir (Levemir) 100 Unit/Ml Syr SQ 20 unit HS [facility] Administration Levothyroxine Sodium 25 mcg 04/05/23 06:30 04/05/23 06:21 Levothyroxine 25 Mcg Tab PO 25 mcg DAILY@0630 [facility] Administration Lisinopril 20 mg 04/04/23 21:00 04/05/23 01:40 Lisinopril 20 Mg Tab PO Not Given HS [facility] Metoprolol Tartrate 25 mg 04/04/23 13:15 04/04/23 21:15 Metoprolol Tartrate 25 Mg Tab PO 25 mg BID MARIYA Administration Naloxone HCl 0.2 mg 04/04/23 13:02 Naloxone 0.4 Mg/Ml 1 Ml Vial IVP Q2M PRN Opioid Reversal Intake and Output 04/04/23 04/05/23 04/05/23 22:59 06:59 14:59 Intake Total 66.553 Balance 66.553 Intake: Intake, IV Titration 66.553 Amount Heparin Sod,Pork in 0.45% 66.553 NaCl 25,000 unit In 0.45 % NaCl 1 250ml.bag @ 12 UNITS/KG/HR 7.784 mls/hr IV .Q24H [facility] Rx#: [id number] Other: Voiding Method Toilet Toilet # Voids 1 1 Weight 64.864 kg 04/05/23 07:15 04/05/23 07:15
[2023-04-05 13:44] LABS: LDL Cholesterol,Calculated 74.1 mg/dL (0.0-131.0); VLDL Calculation 15.98 mg/dL (5.00-40.00)
== END 2023-04-05 11:40 | disposition home or self-care (01) ==
LOC: EC 09:51 → 3SCARD 13:02
PROVIDERS: ADMIT Internal Medicine; ATTEND Internal Medicine
DX: I48.92 Unspecified atrial flutter (principal); I10 Essential (primary) hypertension; E78.5 Hyperlipidemia, unspecified; U07.1 COVID-19; E11.9 Type 2 diabetes mellitus without complications; Z79.890 Hormone replacement therapy; Z79.82 Long term (current) use of aspirin; Z79.899 Other long term (current) drug therapy; E07.9 Disorder of thyroid, unspecified; Z79.84 Long term (current) use of oral hypoglycemic drugs; M19.90 Unspecified osteoarthritis, unspecified site; Z79.4 Long term (current) use of insulin; Z87.891 Personal history of nicotine dependence
CPT/HCPCS: 96376; 96368; 96361; 96365 ×2; 96366 ×3; 96375; 99285 ×2; 36415; 93005; 83880; 80061; 80053; 80048; 83605; 83735 ×2; 84443; 84484; 85025 ×2; 85610; 85730 ×2; 83036; 71046; G0378 ×2; J2060; J1644 ×2; J3475

== ENCOUNTER 2023-04-10 10:56 | Emergency (ER) | payer MEDICARE ==
[2023-04-10] MEDS ORDERED: ONDANSETRON 4 MG/2 ML VIAL IVP STA (11:11)
--- NOTE | 2023-04-10 11:14 | ED ---
Nausea/Vomiting/Diarrhea HPI - General Stated complaint: vomiting Time Seen by Provider: 04/10/23 11:12 Source: patient, family, RN notes reviewed Mode of arrival: ambulatory Limitations: no limitations - History of Present Illness Initial comments: Patient is a 72-year-old female presented ER with chief complaint of nausea and vomiting. Patient also is endorsing lower abdominal pain. Patient also states that she's been having chills. Patient denies any known fevers. Patient has a history of diverticulitis. - Related Data Home Medications Medication Instructions Recorded Confirmed Benazepril HCl 20 mg PO HS 04/09/21 04/04/23 Insulin Glargine,Hum.rec.anlog 20 unit SQ HS 04/09/21 04/04/23 [Lantus Solostar Pen] Levothyroxine Sodium 25 mcg PO DAILY 04/09/21 04/04/23 Simvastatin 40 mg PO DAILY 04/09/21 04/04/23 allopurinoL [Zyloprim] 300 mg PO DAILY 04/09/21 04/04/23 ALPRAZolam [Xanax] 0.125 - 0.25 mg PO Q6H PRN 04/02/23 04/04/23 Aspirin EC [Ecotrin Low Dose] 81 mg PO DAILY 04/02/23 04/04/23 Cholecalciferol [Vitamin D3 (25 25 mcg PO DAILY 04/02/23 04/04/23 Mcg = 1000 Iu)] metFORMIN HCL ER [Glucophage XR] 500 mg PO BID 04/02/23 04/04/23 Previous Rx's Medication Instructions Recorded Metoprolol Tartrate [Lopressor] 25 mg PO BID #90 tab 04/05/23 Allergies Allergy/AdvReac Type Severity Reaction Status Date / Time No Known Allergies Allergy Verified 04/04/23 12:58 Review of Systems ROS Statement: Those systems with pertinent positive or pertinent negative responses have been documented in the HPI. ROS Other: All systems not noted in ROS Statement are negative. Past Medical History Past Medical History: Cancer, Diabetes Mellitus, Hyperlipidemia, Hypertension, Osteoarthritis (OA), Thyroid Disorder Additional Past Medical History / Comment(s): Hx Covid 04/23/21 with bodyaches and sore throat. Hx right breast cancer 26 yrs ago, had 6 weeks of radiation. History of Any Multi-Drug Resistant Organisms: None Reported Past Surgical History: Hysterectomy Additional Past Surgical History / Comment(s): 1/2 thyroid removed, varicose vein stripped. Past Anesthesia/Blood Transfusion Reactions: Postoperative Nausea & Vomiting (PONV) Past Psychological History: No Psychological Hx Reported Smoking Status: Former smoker Past Alcohol Use History: None Reported Past Drug Use History: None Reported - Past Family History Mother Family Medical History: No Reported History General Exam - General Exam Comments Initial Comments: Visual Physical Exam Vital signs reviewed General: Appears in pain Head: Normocephalic, atraumatic Eyes: PERRLA, EOMI ENT: Airway patent Chest: Nonlabored breathing Skin: No visual rash, normal skin tone Neuro: Alert and oriented 3 Musculoskeletal: No gross abnormalities Limitations: no limitations Course Vital Signs 04/10/23 11:06 Temperature 99.5 F Pulse Rate 53 L Respiratory 18 Rate Blood Pressure 121/63 O2 Sat by Pulse 94 L Oximetry Medical Decision Making - Medical Decision Making I performed the quick note portion of the exam. Electronically signed by Raul Cazares PA-C - Lab Data Lab Results 04/10/23 Range/Units 12:22 Urine Color Yellow Urine Appearance Clear (Clear) Urine pH 5.5 (5.0-8.0) Ur Specific [place] 1.023 (1.001-1.035) Urine Protein Trace H (Negative) Urine Glucose (UA) Negative (Negative) Urine Ketones Negative (Negative) Urine Blood Negative (Negative) Urine Nitrite Negative (Negative) Urine Bilirubin Negative (Negative) Urine Urobilinogen <2.0 (<2.0) mg/dL Ur Leukocyte Esterase Small H (Negative) Urine RBC 2 (0-5) /hpf Urine WBC 8 H (0-5) /hpf Ur Squamous Epith Cells 3 (0-4) /hpf Urine Mucus Rare H (None) /hpf Disposition Clinical Impression: Left against medical advice Disposition: LEFT AGAINST MEDICAL ADVICE Condition: Undetermined Referrals: Kevin Nails MD [Primary Care Provider] - 1-2 days Time of Disposition: 17:25
[2023-04-10 11:28] VITALS: BP 121/63; PULSE 53; RESP 18; TEMP 99.5
[2023-04-10 12:40] LABS: Appearance,Urine Clear (Clear); Bilirubin,Urine Negative (Negative); Blood,Urine Negative (Negative); Color,Urine Yellow; Glucose,Urine (UA) Negative (Negative); Ketones,Urine Negative (Negative); Leukocyte Esterase,Urine Small (Negative); Mucus,Urine Rare /hpf; Nitrite,Urine Negative (Negative); PH, Urine 5.5 (5.0-8.0); Protein,Urine Trace (Negative); RBC,Urine 2 /hpf (0-5); Specific Gravity,Urine 1.023 (1.001-1.035); Squamous Epithelial Cell,Urine 3 /hpf (0-4); Urobilinogen,Urine <2.0 mg/dL (<2.0); WBC,Urine 8 /hpf (0-5)
== END 2023-04-10 13:15 | disposition left against medical advice (07) ==
LOC: EC 10:56
DX: Z53.29 Procedure and treatment not carried out because of patient's decision for other reasons (principal); E11.9 Type 2 diabetes mellitus without complications; E78.5 Hyperlipidemia, unspecified; I10 Essential (primary) hypertension; E07.9 Disorder of thyroid, unspecified; Z87.891 Personal history of nicotine dependence; Z86.16 Personal history of COVID-19; Z79.4 Long term (current) use of insulin; Z79.890 Hormone replacement therapy; Z79.84 Long term (current) use of oral hypoglycemic drugs; Z79.899 Other long term (current) drug therapy
CPT/HCPCS: 81001; 99283

== ENCOUNTER → 2023-06-03 | Outpatient (CLI) | payer MEDICARE ==
[2023-06-03 18:02] LABS: HCT 43.2 % (37.2-46.3); Immature Platelet Fraction 18.8 % (1.1-6.1); MCH 30.9 pg (27.0-32.0); MCHC 32.4 g/dL (32.0-37.0); MCV 95.4 FL (80.0-97.0); Mean Platelet Volume 11.8 FL (9.5-12.2); NRBC Per 100 WBC 0 X 10*3/uL (0.00-0.01); RBC 4.53 X 10*6/uL (4.10-5.20); RDW 13.1 % (11.5-14.5); WBC 8.26 X 10*3/uL (4.50-10.00)
[2023-06-03 20:26] LABS: Blood Urea Nitrogen 16.6 mg/dL (9.0-27.0); Carbon Dioxide 26.1 mmol/L (21.6-31.8); Chloride 103 mmol/L (96-109); Potassium 4.3 mmol/L (3.5-5.5); Sodium 142 mmol/L (135-145)
== END | disposition home or self-care (01) ==
LOC: LABPAT 09:13
PROVIDERS: ATTEND Internal Medicine Interventional Cardiology
DX: Z01.812 Encounter for preprocedural laboratory examination (principal); R94.39 Abnormal result of other cardiovascular function study
CPT/HCPCS: 36415; 80051; 82565; 84520; 85027

== ENCOUNTER 2023-06-15 07:05 | Day surgery (SDC) | payer MEDICARE ==
[2023-06-15] MEDS: ASPIRIN 325 MG TAB PO STA (06:50)
[~2023-06-15 07:05] MED LIST changes: -ALPRAZolam 0.25 MG TAB ONE; +ALPRAZolam 0.25 MG TAB PO PRN; -BACITRACIN OINT 1 EACH PACKET TOPICAL ONE; +HEPARIN SODIUM,PORCINE (1 ML) 2,500 UNIT in SODIUM CHLORIDE 0.9% 250 ML IRRIGATION PRN; +HEPARIN SODIUM,PORCINE 10,000 UNIT in SODIUM CHLORIDE 0.9% 1,000 ML IRRIGATION PRN; -LIDOCAINE 1% INJ 10MG/ML (20 ML MDV) ONE; +NITROGLYCERIN SL TABS 0.4 MG TAB SUBLINGUAL PRN; -SODIUM BICARB 4% 5 ML VIAL (0.48 MEQ/ML) ONE
[2023-06-15] MEDS: SODIUM CHLORIDE 0.9% 1,000 ML IV ONE (07:32)
[2023-06-15] MEDS: ALPRAZolam 0.5 MG TAB PO PRN (07:40)
[2023-06-15 07:51] LABS: Glucose,Whole Blood 107 mg/dL (70-110)
[2023-06-15 08:01] LABS: Basophils # (A) 0.1 k/uL (0-0.2); Basophils % (A) 1 %; Eosinophils # (A) 0.4 k/uL (0-0.7); Eosinophils % (A) 4 %; HCT 45.6 % (34.0-46.0); HGB 14.8 gm/dL (11.4-16.0); Lymphocytes % (A) 40 %; MCH 31.3 pg (25.0-35.0); MCHC 32.4 g/dL (31.0-37.0); MCV 96.3 fL (80.0-100.0); Mean Platelet Volume 14.2; Monocytes # (A) 0.6 k/uL (0-1.0); Monocytes % (A) 6 %; Neutrophils # (A) 4.7 k/uL (1.3-7.7); Neutrophils % (A) 47 %; RBC 4.73 m/uL (3.80-5.40); RDW 13.1 % (11.5-15.5)
[2023-06-15 08:15] VITALS: RESP 16
[2023-06-15] MEDS: METOPROLOL TARTRATE 12.5 MG TAB PO STA ×2 (08:21→11:00)
[2023-06-15] MEDS: hydrALAZINE HCL 20 MG/ML 1 ML VIAL ONE (08:39)
[2023-06-15] MEDS: ACETAMINOPHEN TAB 500 MG TAB PO ONE (08:43)
[2023-06-15] MEDS ORDERED: VERAPAMIL 2.5 MG/ML 2 ML AMP ONE (08:48)
[2023-06-15] MEDS ORDERED: fentaNYL (PF) 50 MCG/ML 2 ML AMP ONE (09:04)
[2023-06-15 09:08] LABS: RBC Morphology Normal
[2023-06-15] MEDS: MIDAZOLAM 2 MG/2 ML VIAL IVP ONE (09:27)
[2023-06-15] MEDS: fentaNYL (PF) 50 MCG/ML 2 ML AMP IVP ONE (09:32)
[2023-06-15] MEDS ORDERED: HEPARIN SODIUM 1,000 UN/ML (10ML VL) ONE (09:36)
[2023-06-15] MEDS: LIDOCAINE 2% (PF) 20 MG/ML 5 ML VIAL SQ ONE (09:36)
[2023-06-15] MEDS: VERAPAMIL SYRINGE (5 MG/10 ML) INTRAARTER ONE (09:38)
[2023-06-15] MEDS ORDERED: RX INFO: IV CONTRAST WAS GIVEN 1 EACH MISC MISCELLANE PRN (09:47)
[2023-06-15] MEDS: IOPAMIDOL-370 100ML BTL INJ ONE (09:50)
--- NOTE | 2023-06-15 09:51 | P.PCN ---
Date of Procedure: 06/15/23 Operative Findings: CARDIAC CATHETERIZATION PERFORMING PHYSICIAN: Marcelo Tierney MD, RPVI PROCEDURE PERFORMED: 1. Selective right and left coronary angiogram 2. Left heart catheterization 3. Ultrasound-guided access of the right radial artery INDICATION: Symptomatic 72-year-old female patient who underwent myocardial perfusion imaging stress test and that showed an inferior ischemia and echo showed cardiomyopathy with inferior hypokinesia COMPLICATION: None APPROACH: Right radial artery LEVEL OF SEDATION: Moderate with a sedation length of 9 minutes PROCEDURE DESCRIPTION: After obtaining an informed consent, the patient was brought to cardiac refuse laborer. Local anesthesia was performed using lidocaine subcutaneously. The right radial artery was cannulated using Seldinger technique, the guidewire passed easily, following that we advanced a 5-Finnish sheath dilator assembly, the wire and dilator were removed and sheath was flushed. Following that, 2 mg of verapamil along with 3000 unit heparin were given. Selective right and left coronary angiogram using a 6-Finnish JR4 and JL 3.5 c atheters. Following that we did left heart catheterization using 6-Finnish JL 3.5 catheter. The procedure was completed there was no complication. SELECTIVE CORONARY ANGIOGRAM: The right coronary artery: Medium caliber vessel nondominant vessel Left main: Is angiographically normal. Bifurcates into an LCx and LAD The left circumflex: Large-caliber vessel and a dominant vessel. It has mild disease in the proximal portion. Gives rise into the first and second obtuse marginal branches and they are normal and distally bifurcates into PDA and PLV branches and they are normal as well The left anterior descending artery: Large-caliber vessel the LAD is angiographically normal. Gives rise into the first and second diagonal branches and they are normal. HEMODYNAMICS: The LVEDP was 14 mmHg with no significant gradient across aortic valve CONCLUSION: 1. Mild nonobstructive coronary artery disease 2. Normal left-sided filling pressure POSTPROCEDURE MANAGEMENT: Medical treatment
[2023-06-15] MEDS: SODIUM CHLORIDE 0.9% 1,000 ML IV SCH (10:00)
[2023-06-15] MEDS: ONDANSETRON 4 MG/2 ML VIAL IVP ONE (10:09)
[2023-06-15] MEDS: hydrALAZINE HCL 20 MG/ML 1 ML VIAL IVP STA (11:20)
[2023-06-15] MEDS: SODIUM CHLORIDE 0.9% 500 ML 500 ML IV ONE ×2 (13:00→16:35)
[2023-06-15] MEDS: PROCHLORPERAZINE INJ 10 MG/2 ML VIAL IVP STA ×2 (13:20→16:04)
[2023-06-15] MEDS: hydrALAZINE HCL 20 MG/ML 1 ML VIAL IVP PRN (16:08)
[2023-06-15 16:38] LABS: Glucose,Whole Blood 141 mg/dL (70-110)
[2023-06-15] MEDS ORDERED: PROCHLORPERAZINE INJ 10 MG/2 ML VIAL IVP PRN (16:39)
[2023-06-15] MEDS: ONDANSETRON 4 MG/2 ML VIAL IVP PRN (18:30)
[2023-06-15] MEDS: SODIUM CHLORIDE 0.9% 1,000 ML in EMPTY BAG 1 BAG IV SCH ×2 (18:50→18:52)
[2023-06-15 20:34] LABS: Glucose,Whole Blood 134 mg/dL (70-110)
[2023-06-15] MEDS: lisinopriL 20 MG TAB PO SCH (21:06)
[2023-06-15] MEDS: METOPROLOL TARTRATE 25 MG TAB PO SCH (21:06)
[2023-06-15] MEDS: INSULIN DETEMIR (LEVEMIR) 100 UNIT/ML SYR SQ SCH (21:06)
[2023-06-16] MEDS: LEVOTHYROXINE 25 MCG TAB PO SCH (06:17)
[2023-06-16 06:27] LABS: Glucose,Whole Blood 108 mg/dL (70-110)
--- NOTE | 2023-06-16 08:36 | P.PCN ---
Date of Procedure: 06/16/23 Operative Findings: The patient is a pleasant 72-year-old female patient who underwent yesterday heart catheterization and was found to have mild nonobstructive coronary artery disease. The patient was kept overnight because she was experiencing severe nausea. The nausea has improved. The pressure has been under better control. The patient is going to be discharged home and follow-up with Dr. Ruby next week in the office
[2023-06-16] MEDS: allopurinoL 300 MG TAB PO SCH (08:53)
[2023-06-16] MEDS: ASPIRIN 81 MG PO SCH (08:53)
[2023-06-16] MEDS: ATORVASTATIN 20 MG TAB PO SCH (08:53)
[2023-06-16 09:01] VITALS: BP 146/74; PULSE 92; TEMP 97.6
== END 2023-06-16 10:32 | disposition home or self-care (01) ==
LOC: CATHCVL 07:05 → 6NMEDSUR 09:44 → CATHCVL 06-16 10:32
PROVIDERS: ATTEND Internal Medicine Interventional Cardiology
DX: I25.10 Atherosclerotic heart disease of native coronary artery without angina pectoris (principal); I42.9 Cardiomyopathy, unspecified; I10 Essential (primary) hypertension; E78.5 Hyperlipidemia, unspecified; E11.9 Type 2 diabetes mellitus without complications; F17.210 Nicotine dependence, cigarettes, uncomplicated; Z79.899 Other long term (current) drug therapy
CPT/HCPCS: 93458; 85025; C1769; C1894; J2250; J0360; J0780; J2405; J3010; J1644; Q9967; J2001

== ENCOUNTER → 2023-06-29 | Outpatient (CLI) | payer MEDICARE ==
[2023-06-29 12:17] LABS: Blood Urea Nitrogen 16.3 mg/dL (9.0-27.0); Chloride 104 mmol/L (96-109); Potassium 4.2 mmol/L (3.5-5.5); Sodium 141 mmol/L (135-145)
[2023-06-29 13:14] LABS: HCT 43.1 % (37.2-46.3); HGB 13.9 g/dL (12.0-15.0); MCH 31.1 pg (27.0-32.0); MCHC 32.3 g/dL (32.0-37.0); MCV 96.4 FL (80.0-97.0); NRBC Per 100 WBC 0 X 10*3/uL (0.00-0.01); Platelet Count 53 X 10*3/uL (140-440); RBC 4.47 X 10*6/uL (4.10-5.20); RDW 12.8 % (11.5-14.5); WBC 11.07 X 10*3/uL (4.50-10.00)
== END | disposition home or self-care (01) ==
LOC: LABPAT 08:21
PROVIDERS: ATTEND Student in an Organized Health Care Education/Training Program
DX: Z01.812 Encounter for preprocedural laboratory examination (principal); I47.19 Other supraventricular tachycardia
CPT/HCPCS: 36415; 80051; 82565; 84520; 85027

== ENCOUNTER 2023-07-09 09:02 | Day surgery (SDC) | payer MEDICARE ==
[2023-07-07 12:29] VITALS: BMI 24.0
[2023-07-09] MEDS: SODIUM CHLORIDE 0.9% 1,000 ML IV SCH (09:22)
[2023-07-09 09:31] LABS: Glucose,Whole Blood 90 mg/dL (70-110)
[2023-07-09] MEDS ORDERED: PROPOFOL 10 MG/ML 20 ML VIAL IV ONE (10:55)
[2023-07-09] MEDS ORDERED: PHENYLEPHRINE 10 MG/ML VIAL ONE (10:55)
[2023-07-09] MEDS ORDERED: KETAMINE HCL IN 0.9 % NACL 50 MG/5 ML SYRINGE ONE (10:55)
[2023-07-09] MEDS ORDERED: fentaNYL (PF) 50 MCG/ML 2 ML AMP ONE (10:55)
[2023-07-09] MEDS ORDERED: ONDANSETRON 4 MG/2 ML VIAL ONE (10:55)
[2023-07-09] MEDS ORDERED: ISOPROTERENOL 250 MCG/1.25 ML SYR IV ONE (10:55)
[2023-07-09] MEDS ORDERED: MIDAZOLAM 2 MG/2 ML VIAL ONE (10:55)
[2023-07-09] MEDS ORDERED: WATER FOR INJECTION, STERILE 10 ML VIAL IV ONE (10:55)
[2023-07-09] MEDS: HEPARIN SODIUM (1,000 UNIT/ML) 1,000 UNIT in SODIUM CHLORIDE 0.9% 1,000 ML IRRIGATION ONE (11:15)
[2023-07-09] MEDS ORDERED: LIDOCAINE 1% INJ 10MG/ML (20 ML MDV) ONE ×2 (11:17→11:37)
[2023-07-09] MEDS: LIDOCAINE 1% INJ 10MG/ML (20 ML MDV) SQ ONE (11:33)
--- NOTE | 2023-07-09 15:42 | P.EPPROC ---
- EP Procedure Note Electrophysiology Procedure Note: Diagnosis Recurrent SVT, symptomatic Final diagnosis AV agnes reentrant tachycardia Details Patient was brought to the EP lab in a fasting state. Written informed consent was obtained prior to the procedure. Venous sheaths were placed in the right left femoral veins Diagnostic catheter placed in the right heart including high right atrium His bundle area, coronary sinus and RV Sinus cycle length 851 ms, DC interval 153, QRS 91 and QT 388 ms AH 44 and HV interval 67 ms Normal response to Para-Hisian pacing Sinus node recovery times showed normal values AV node Wenckebach block 270 ms VA Wenckebach block 430 ms Atrial and ventricular extra stimulation performed Straight pacing performed No SVT induced in the baseline state No clear-cut antegrade slow pathway Isopril used high-dose AV node Wenckebach block improved to 220 ms AV agnes reentrant tachycardia induced with ventricle extrastimulation VAV response, long post pacing interval Coronary sinus pacing was performed high right atrial pacing was performed Ventricle extrastimulation was the only way that AV agnes reentry was induced A long deflectable sheath was placed Mapping and ablation catheter, irrigated tip was used The His bundle was tagged the coronary sinus os was tagged It was difficult to place the coronary sinus catheter in his usual deep position within the coronary sinus A very large os of the coronary sinus noted the roof and the base of the tag In the YI/left lateral view the hiss bundle cloud and the roof of the coronary sinus were at the same level Detailed mapping of the slow pathway was performed Ablation lesions were initially performing conscious sedation at the anterior aspect of the coronary sinus just in front of it, of the septum, at the roof of the coronary sinus AV agnes reentry was still inducible but it became harder to induce once the roof was ablated However the patient was moving around a lot despite conscious sedation medications and finally she had to be intubated so that the procedure could be performed safely However RF ablations and mapping were performed in the same locations for with better contact However AV node reentry was still inducible despite stepwise ablation on the anterior aspect of the coronary sinus near the floor and just outside to it, the n subsequently at the roof and of the septum Finally as AV node reentry was repeatedly induced and no junctional rhythm was obtained mapping was performed closer to the His bundle cloud about 1.1 cm to it At this site junctional rhythm was obtained and good contact force good power was obtained 3 lesions were applied at that level The DC interval remained unchanged After the first successful lesion of junctional rhythm no further junctional rhythm was obtained Thereafter on high-dose Isopril and ventricle extrastimulation only single echo beats were noted occasionally no AV agnes reentry could be induced any further despite repeated testing All catheters were then removed closure device applied patient extubated and transferred to recovery area This was a long procedure on account of mapping multiple areas in the low septum and finally successful ablation in the mid septal area closer to the hiss but without any injury to the fast pathway This took an extra long time. The patient finally had to be intubated because she was moving around a lot and conscious sedation despite being deeply sedated However she tolerated the procedure well without any acute complications
[2023-07-09] MEDS: ONDANSETRON 4 MG/2 ML VIAL IVP PRN (15:53)
[2023-07-09] MEDS: SODIUM CHLORIDE 0.9% 1,000 ML IV ONE ×2 (16:02→17:03)
--- NOTE | 2023-07-09 17:13 | P.PRLE ---
RE: Julia Jansen Dear Sunny Jansen underwent a diagnostic EP study which confirmed AV agnes reentrant tachycardia. She underwent successful mapping and ablation of the slow pathway The tachycardia is rendered noninducible I will stop metoprolol at this time and she will continue to follow-up with you as before Thank you for entrusting me with the care of the patient Warm regards Sincerely Saurabh Tony
[2023-07-09 17:23] LABS: Glucose,Whole Blood 85 mg/dL (70-110)
[2023-07-09] MEDS: ACETAMINOPHEN TAB 325 MG TAB PO PRN (18:07)
[2023-07-09] MEDS: INSULIN DETEMIR (LEVEMIR) 100 UNIT/ML SYR SQ SCH (20:59)
[2023-07-09] MEDS: lisinopriL 10 MG TAB PO SCH (21:00)
[2023-07-09 21:02] LABS: Glucose,Whole Blood 114 mg/dL (70-110)
[2023-07-09] MEDS: ACETAMINOPHEN IV (For NPO) 1,000 MG in EMPTY BAG 1 BAG IVPB ONE (21:35)
[2023-07-10] MEDS: LEVOTHYROXINE 25 MCG TAB PO SCH (06:11)
[2023-07-10 07:59] VITALS: BP 157/80; PULSE 70; RESP 18; TEMP 97.8
[2023-07-10] MEDS: lisinopriL 20 MG TAB PO SCH (08:10)
[2023-07-10] MEDS: ASPIRIN 81 MG PO SCH (08:10)
[2023-07-10] MEDS: ATORVASTATIN 20 MG TAB PO SCH (08:10)
[2023-07-10] MEDS: allopurinoL 300 MG TAB PO SCH (08:10)
--- NOTE | 2023-07-10 09:40 | P.DS ---
Providers Date of admission: 07/09/23 Attending physician: Saurabh Tony Primary care physician: Balwinder Nails Assessment: The patient is a 72-year-old female who follows in the office with Dr. Ruby. She underwent AV agnes reentrant tachycardia ablation yesterday. It was a long procedure due to difficulty with sedation as well as difficulty mapping mid septal lesion. Overall successful ablation. Due to large amounts of anesthesia, patient was started on IV fluids. Patient was interviewed and examined resting comfortably in bed. Patient has been suffering from headaches and her blood pressure has been suboptimally controlled. She denies any chest pain or chest pressure. No difficulty breathing overnight GENERAL: Well-appearing, well-nourished and in no acute distress. NECK: Supple without JVD or thyromegaly. LUNGS: Breath sounds clear to auscultation bilaterally. Respiration equal and unlabored. No wheezes, rales or rhonchi. HEART: Regular rate and rhythm without murmurs, rubs or gallops. S1 and S2 heard. EXTREMITIES: Normal range of motion, no edema. No clubbing or cyanosis. Peripheral pulses intact and strong. Bilateral groin sites are clean dry and intact. No hematoma or excessive bruising TELEMETRY: Sinus rhythm overnight IMPRESSION: AV agnes reentrant tachycardia Status post radiofrequency ablation Hypertension PLAN: Increase benazepril to 20 mg twice daily at discharge Continue IV fluids and encourage hydration until noon Patient may be discharged for outpatient follow-up with Dr. Tony thereafter I am dictating on behalf of Dr Saurabh Tony's history/physical and assessment/plan. Plan - Discharge Summary Discharge Rx Participant: No New Discharge Prescriptions: New Benazepril HCl 20 mg PO BID #60 tab Discontinued Benazepril HCl 30 mg PO HS Metoprolol Tartrate [Lopressor] 25 mg PO BID No Action Insulin Glargine,Hum.rec.anlog [Lantus Solostar Pen] 20 unit SQ HS Simvastatin 40 mg PO DAILY Levothyroxine Sodium 25 mcg PO DAILY allopurinoL [Zyloprim] 300 mg PO DAILY ALPRAZolam [Xanax] 0.125 - 0.25 mg PO Q6H PRN PRN Reason: Anxiety Aspirin EC [Ecotrin Low Dose] 81 mg PO DAILY Discharge Medication List Insulin Glargine,Hum.rec.anlog [Lantus Solostar Pen] 20 unit SQ HS 04/09/21 [History] Levothyroxine Sodium 25 mcg PO DAILY 04/09/21 [History] Simvastatin 40 mg PO DAILY 04/09/21 [History] allopurinoL [Zyloprim] 300 mg PO DAILY 04/09/21 [History] ALPRAZolam [Xanax] 0.125 - 0.25 mg PO Q6H PRN 04/02/23 [History] Aspirin EC [Ecotrin Low Dose] 81 mg PO DAILY 04/02/23 [History] Benazepril HCl 20 mg PO BID #60 tab 07/10/23 [Rx] Follow up Appointment(s)/Referral(s): Saurabh Tony MD [STAFF PHYSICIAN] - 07/21/23 8:45 am (FOLLOW UP APPT 07/21/23 AT 08:45AM) Activity/Diet/Wound Care/Special Instructions: Post EP study - Ablation instructions 1. Keep access sites dry for 2 days. 2. No heavy lifting or straining for 2 days. 3. Avoid bending the hips repeatedly for 2 days. 4. You may go up and down stairs slowly Call if the following is noted 1. Bleeding, increasing swelling or pain at the access sites. 2. Increasing chest discomfort, especially upon taking a deep breath. 3. Increasing shortness of breath, at rest or with exertion. 4. Undue cough / phlegm 5. Difficulty or pain while swallowing. 6. Pain or change in color in the extremities. 7. Fever, chills, rigors. 8. Increasing headache or neurologic symptoms. 9. Dizziness, fainting, palpitations Stop metoprolol Discharge Disposition: HOME SELF-CARE
== END 2023-07-10 11:29 | disposition home or self-care (01) ==
LOC: CATHEP 09:02 → 6NMEDSUR 15:15 → CATHEP 07-10 11:29
PROVIDERS: ATTEND Internal Medicine Clinical Cardiac Electrophysiology
DX: I25.10 Atherosclerotic heart disease of native coronary artery without angina pectoris (principal); I47.10 Supraventricular tachycardia, unspecified; I10 Essential (primary) hypertension; E78.5 Hyperlipidemia, unspecified; E11.9 Type 2 diabetes mellitus without complications; F17.210 Nicotine dependence, cigarettes, uncomplicated; Z79.899 Other long term (current) drug therapy
CPT/HCPCS: 93623; 93653; 86900; 86901; 86850; C1894; C1769; C1760; C1766; C1730 ×3; C1732; J2405; J2001; J1644

== ENCOUNTER → 2023-07-27 | Outpatient (CLI) | payer MEDICARE ==
--- NOTE | 2023-07-27 17:42 | BD ---
EXAMINATION TYPE: Axial Bone Density DATE OF EXAM: 07/27/2023 CLINICAL HISTORY: 72 years old Female. ICD-10 CODE: M89.9 DISORDER OF BONE, UNSPECIFIED Height: 63.5 Weight: 140 FRAX RISK QUESTIONS: Family History (Parent hip fracture): yes History of Fracture in Adulthood: no Secondary Osteoporosis: yes 3. Menopause before 45: yes 41 RISK FACTORS HISTORY OF: Surgery to Spine/Hip(right/left)/Wrist (right/left): no MEDICATIONS: Thyroid Medications: yes Which medication: Levothyroxine How Lon+ years Osteoporosis Medications: no EXAM MEASUREMENTS: Bone mineral densitometry was performed using the [employer] System. Bone mineral density as measured about the Lumbar spine is: ----- L1-L4(G/cm2): 1.119 T Score Values are as follows: ----- L1: -1.7 ----- L2: -1.3 ----- L3: -0.3 ----- L4: 1.2 ----- L1-L4: -0.5 Z Score Values are as follows: ----- L1: 0.0 ----- L2: 0.5 ----- L3: 1.4 ----- L4: 3.0 ----- L1-L4: 1.3 Bone mineral density has: Increased 4.3% since study of: 04/18/2019 Bone mineral density about the R hip (g/cm2): 0.779 Bone mineral density about the L hip (g/cm2): 0.803 T Score values are as follows: -----R Neck: -2.1 -----L Neck: -2.1 -----R Total: -1.8 -----L Total: -1.6 Z Score values are as follows: -----R Neck: -0.1 -----L Neck: -0.2 -----R Total: -0.1 -----L Total: 0.1 Bone mineral density has: Decreased -8.7% since study of: 04/18/2019 FRAX%s: The graph provided illustrates a 25.3% chance for a major osteoporotic fx and a 15.0% chance for the hips probability for fx in 10 years time. IMPRESSION: Osteopenia (T Score between -2.5 and -1). There is slightly increased risk of fracture and the patient may be considered for treatment. Re-Screen 2-5 years. NOTE: T-SCORE=SD OF THE YOUNG ADULT MEAN.
--- NOTE | 2023-07-28 08:48 | MM ---
Reason for Exam: Screening (asymptomatic). Last screening mammogram was performed 12 month(s) ago. Patient History: Menarche at age 13. First Full-Term at age 18. Left ovary removed at age 38. Right ovary removed at age 38. Hysterectomy at age 38. Postmenopausal. Breast cancer, age 40. 1990, Lumpectomy on the Right side. 04/11/2016, Benign Cyst Aspiration on the right side. 04/11/2016, Benign Core Biopsy on the right side. 1990, Radiation Therapy on the right side. Prior Study Comparison: 05/09/2020 Bilateral Screening Mammogram, [facility]. 07/08/2021 Bilateral Screening Mammogram, [facility]. 07/14/2022 Bilateral MG 3D screening mammo w/cad, [facility]. Tissue Density: The breasts are heterogeneously dense, which may obscure small masses. Findings: Analyzed By CAD. No suspicious grouped calcifications. There is a 7 mm asymmetric density within the upper inner margin left breast. Stable benign calcifications right breast. Additional benign calcifications left breast. Chronic nodularity central lower posterior left breast stable from multiple prior exams. Overall Assessment: Incomplete: need additional imaging evaluation, BI-RAD 0 Management: Diagnostic Mammogram of the left breast. . Patient should continue monthly self-breast exams. A clinical breast exam by your physician is recommended on an annual basis. This exam should not preclude additional follow-up of suspicious palpable abnormalities. Note on Keisha scores and lifetime risk: 1. A Keisha score greater than 3% is considered moderate risk. If this is the case, consider specialist referral to assess eligibility for a risk reducing agent. 2. If overall lifetime risk for the development of breast cancer is 20% or higher, the patient may qualify for future screening with alternating mammogram and breast MRI. Electronically signed and approved by: Alex Santiago M.D. Radiologis
== END | disposition home or self-care (01) ==
LOC: RADMAMWWP 06:51
PROVIDERS: ATTEND Family Medicine
DX: Z12.31 Encounter for screening mammogram for malignant neoplasm of breast (principal); M85.89 Other specified disorders of bone density and structure, multiple sites; Z78.0 Asymptomatic menopausal state
CPT/HCPCS: 77063; 77067; 77080

== ENCOUNTER → 2023-07-30 | Outpatient (CLI) | payer MEDICARE ==
--- NOTE | 2023-07-30 07:51 | MM ---
Reason for Exam: Additional evaluation requested from abnormal screening. Last screening mammogram was performed less than 1 month ago. Patient History: Menarche at age 13. First Full-Term at age 18. Left ovary removed at age 38. Right ovary removed at age 38. Hysterectomy at age 38. Postmenopausal. Breast cancer, age 40. 1990, Lumpectomy on the Right side. 04/11/2016, Benign Cyst Aspiration on the right side. 04/11/2016, Benign Core Biopsy on the right side. 1990, Radiation Therapy on the right side. Prior Study Comparison: 07/08/2021 Bilateral Screening Mammogram, [facility]. 07/14/2022 Bilateral MG 3D screening mammo w/cad, [facility]. 07/27/2023 Bilateral MG 3D screening mammo w/cad, [facility]. Tissue Density: Left: There are scattered areas of fibroglandular density. Findings: Analyzed By CAD. Pattern is stable. On compression views of the left breast. No persistent suspicious irregular density is evident. There may be some underlying nodularity may be chronic. Short-term follow-up is recommended. No suspicious groups of microcalcifications, spiculated or lobular masses, architectural distortion or other secondary signs of malignancy are mammographically apparent. Overall Assessment: Probably benign, BI-RAD 3 Management: Diagnostic Mammogram of the left breast in 6 months. A negative mammogram report should not preclude additional follow up of suspicious palpable abnormalities. Patient should continue monthly self breast exam. A clinical breast exam by your physician is recommended on an annual basis and results should be correlated with mammographic findings. Note on Keisha scores and lifetime risk: 1. A Keisha score greater than 3% is considered moderate risk. If this is the case, consider specialist referral to assess eligibility for a risk reducing agent. 2. If overall lifetime risk for the development of breast cancer is 20% or higher, the patient may qualify for future screening with alternating mammogram and breast MRI. Electronically signed and approved by: Simon Juarez D.O. Radiologis
== END | disposition home or self-care (01) ==
LOC: RADMAMWWP 06:49
PROVIDERS: ATTEND Family Medicine
DX: R92.322 Mammographic fibroglandular density, left breast (principal); Z80.3 Family history of malignant neoplasm of breast
CPT/HCPCS: 77065; G0279; 77061

== ENCOUNTER → 2024-02-02 | Outpatient (CLI) | payer MEDICARE ==
--- NOTE | 2024-02-02 09:12 | MM ---
Reason for Exam: Follow-up at short interval from prior study. Last screening mammogram was performed 7 month(s) ago. Patient History: Menarche at age 13. First Full-Term at age 18. Left ovary removed at age 38. Right ovary removed at age 38. Hysterectomy at age 38. Postmenopausal. Breast cancer, age 40. 1990, Lumpectomy on the Right side. 04/11/2016, Benign Cyst Aspiration on the right side. 04/11/2016, Benign Core Biopsy on the right side. 1990, Radiation Therapy on the right side. Prior Study Comparison: 07/14/2022 Bilateral MG 3D screening mammo w/cad, [facility]. 07/27/2023 Bilateral MG 3D screening mammo w/cad, [facility]. 07/30/2023 Left MG 3D work up w/cad , [facility]. Tissue Density: Left: There are scattered areas of fibroglandular density. Findings: Analyzed By CAD. Pattern appears stable. No suspicious focal asymmetry is identified. No suspicious groups of microcalcifications, spiculated or lobular masses, architectural distortion or other secondary signs of malignancy are mammographically apparent. Overall Assessment: Probably benign, BI-RAD 3 Management: Screening Mammogram of both breasts in 6 months. A negative mammogram report should not preclude additional follow up of suspicious palpable abnormalities. Patient should continue monthly self breast exam. A clinical breast exam by your physician is recommended on an annual basis and results should be correlated with mammographic findings. Note on Keisha scores and lifetime risk: 1. A Keisha score greater than 3% is considered moderate risk. If this is the case, consider specialist referral to assess eligibility for a risk reducing agent. 2. If overall lifetime risk for the development of breast cancer is 20% or higher, the patient may qualify for future screening with alternating mammogram and breast MRI. [facility], , 02/02/2024 9:09 AM. Electronically signed and approved by: Simon Juarez D.O. Radiologis
== END | disposition home or self-care (01) ==
LOC: RADMAMWWP 08:02
PROVIDERS: ATTEND Family Medicine
DX: R92.8 Other abnormal and inconclusive findings on diagnostic imaging of breast (principal); Z90.722 Acquired absence of ovaries, bilateral; Z78.0 Asymptomatic menopausal state; Z85.3 Personal history of malignant neoplasm of breast; R92.321 Mammographic fibroglandular density, right breast
CPT/HCPCS: 77065; G0279; 77061

== ENCOUNTER → 2024-07-01 | Outpatient (CLI) | payer MEDICARE ==
--- NOTE | 2024-07-01 07:47 | MM ---
Reason for Exam: Clinical finding. Last screening mammogram was performed 12 month(s) ago. Patient History: Menarche at age 13. First Full-Term at age 18. Left ovary removed at age 38. Right ovary removed at age 38. Hysterectomy at age 38. Postmenopausal. Breast cancer, age 40. 1990, Lumpectomy on the Right side. 04/11/2016, Benign Cyst Aspiration on the right side. 04/11/2016, Benign Core Biopsy on the right side. 1990, Radiation Therapy on the right side. Tissue Density: The breasts are heterogeneously dense, which may obscure small masses. Findings: Analyzed By CAD. Postoperative changes right breast with diminutive right breast noted relative to its left-sided counterpart. There appear to be postoperative changes with distortion and dense calcifications at the site of clinical concern right breast. Ultrasound is recommended. Left breast is unremarkable. Overall Assessment: Incomplete: need additional imaging evaluation, BI-RAD 0 Management: Diagnostic Breast Ultrasound of the right breast. . Results were given to the patient verbally at the time of exam. Patient should continue monthly self-breast exams. A clinical breast exam by your physician is recommended on an annual basis. This exam should not preclude additional follow-up of suspicious palpable abnormalities. Note on Keisha scores and lifetime risk: 1. A Keisha score greater than 3% is considered moderate risk. If this is the case, consider specialist referral to assess eligibility for a risk reducing agent. 2. If overall lifetime risk for the development of breast cancer is 20% or higher, the patient may qualify for future screening with alternating mammogram and breast MRI. [facility], , 07/01/2024 7:44 AM. Electronically signed and approved by: Shai Moreno M.D. Radiologis
--- NOTE | 2024-07-01 08:12 | USB ---
Patient History: Menarche at age 13. First Full-Term at age 18. Left ovary removed at age 38. Right ovary removed at age 38. Hysterectomy at age 38. Postmenopausal. Breast cancer, right, age 40. 1990, Lumpectomy on the Right side. 04/11/2016, Benign Cyst Aspiration on the right side. 04/11/2016, Benign Core Biopsy on the right side. 1990, Radiation Therapy on the right side. Technique: Method: Targeted. Prior Study Comparison: 07/27/2023 Bilateral MG 3D screening mammo w/cad, [facility]. 07/30/2023 Left MG 3D work up w/cad LT, [facility]. 02/02/2024 Left MG 3D diag mammo w/cad LT, [facility]. Findings: The upper inner quadrant of the right breast, the axilla of the right breast and the retroareolar of the right breast were scanned. A complete US of all four quadrants of the breast and retro-areolar region were reviewed. There is extensive shadowing noted at the site of clinical concern which correlates with the mammographic findings of dense calcifications and postsurgical change. No distinct underlying mass is appreciated with certainty. If there is clinical concern for a mass consider MRI. There is a lymph node within the right axilla that demonstrates mild cortical thickening at 3.8 mm. Follow-up is recommended in 6 months. Overall Assessment: Probably benign, BI-RAD 3 Management: Diagnostic Breast Ultrasound of the right breast in 6 months. A clinical breast exam by your physician is recommended on an annual basis and results should be correlated with mammographic findings. This exam should not preclude additional follow-up of suspicious palpable abnormalities. Results were given to the patient verbally at the time of exam. [facility], , 07/01/2024 8:10 AM. Electronically signed and approved by: Shai Moreno M.D. Radiologis
== END | disposition home or self-care (01) ==
LOC: RADMAMWWP 07:21
PROVIDERS: ATTEND Family Medicine
DX: N63.10 Unspecified lump in the right breast, unspecified quadrant (principal); R92.333 Mammographic heterogeneous density, bilateral breasts; Z78.0 Asymptomatic menopausal state; Z98.890 Other specified postprocedural states; Z85.3 Personal history of malignant neoplasm of breast
CPT/HCPCS: 77062; 77066